=== PATIENT | female | born 1965 | race Caucasian/White ===

== ENCOUNTER 2016-08-04 09:24 | Emergency (ER) | payer OTHER ==
[~2016-08-04] VITALS: Ht 157.5 cm; Wt 70.3 kg
[~2016-08-04 09:24] MED LIST: HYDR-971 PO; MYCO180T3 PO; TACR1CAP4 PO; TEMA15CA PO
[2016-08-04] MEDS ORDERED: PROMETHAZINE 25 MG/ML VIAL IV ONE (10:03)
[2016-08-04] MEDS ORDERED: IV NORMAL SALINE 50ML 50 ML ONE (10:04)
[2016-08-04] MEDS ORDERED: KETOROLAC 30 MG/ML VIAL. IV ONE (10:15)
[2016-08-04] MEDS ORDERED: DIPHENHYDRAMINE 50 MG/ML VIAL IVP ONE (10:15)
[2016-08-04] MEDS ORDERED: HALOPERIDOL LACT 5 MG/ML VIAL. IVP ONE (10:15)
[2016-08-04] MEDS ORDERED: IV NORMAL SALINE 1,000ML 1,000 ML IV SCH (10:15)
[2016-08-04] MEDS ORDERED: PROMETHAZINE 25 MG in IV NORMAL SALINE 50ML 50 ML IV PRN (10:30)
--- NOTE | 2016-08-04 10:59 | PHYS DOC ---
General Chief Complaint: HEADACHE Stated Complaint: HEADACHE Time Seen by MD: 09:37 Source: patient, old records Exam Limitations: no limitations Problems: History of Present Illness Initial Comments Pt is 50/F to ED c/o migraine. Pt states she's had one of her typical migraines since Thursday. States she has photophobia, nausea, with emesis x 3 this am. No scotoma/aura/focal weakness, follows at [facility] for headaches. She had an appointment there this am but is missing it to come to this ED. Home meds not helping. Scratchy throat started yesterday no fever good PO. Timing/Duration: constant (2 days) Severity: severe Modifying Factors: improves with rest Associated Symptoms: headaches, nausea/vomiting Allergies: Coded Allergies: Penicillins (Unverified Allergy, Unknown, 11/29/13) Sulfa (Sulfonamide Antibiotics) (Verified Allergy, Unknown, 08/04/16) Past Medical History Medical History: other (migraines, GERD) Surgical History: noncontributory, other Family History Significant Family History: no pertinent family hx, hypertension, other Social History Smoker: non-smoker Alcohol: none Drugs: none Review of Systems Constitutional: denies chills, denies fever, denies malaise EENTM: see HPIdenies eye pain, denies blurred vision Respiratory: denies cough, denies shortness of breath Cardiovascular: denies chest pain, denies palpitations Gastrointestinal: see HPIdenies abdominal pain Genitourinary: denies dysuria, denies frequency, denies hematuria Musculoskeletal: denies back pain, denies joint swelling, denies neck pain Psychiatric/Neurological: headachedenies numbness, denies paresthesia, denies weakness Physical Exam General Appearance: moderate distress Eyes: bilateral eye EOMI, bilateral eye PERRL, bilateral eye normal inspection Ear, Nose, Throat: hearing grossly normal, normal ENT inspection, normal pharynx Neck: non-tender, supple Respiratory: normal breath sounds, no respiratory distress Cardiovascular: normal peripheral pulses, regular rate, rhythm Gastrointestinal: non tender, soft Extremities: non-tender, normal inspection 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 I discussed follow up appt, pt expressed agreement/understanding. Departure Time of Disposition: 10:58 Disposition: 01 HOME, SELF-CARE Diagnosis: recurrant migraine Condition: IMPROVED Patient Instructions: Migraine Headache, [id number]-[id number] Additional Instructions: Rest, no strenuous activity. No driving or operating machinery while sedated with meds. Continue current meds. Reschedule Headache Specialty appointment at for next available. Return to ED with new or changing symptoms. SANDI VICTORIA DO Aug 04, 2016 10:59
[2016-08-04 11:02] VITALS: BP 138/72
== END 2016-08-04 11:07 | disposition home or self-care (01) ==
LOC: ER 09:24
DX: G43.909 Migraine, unspecified, not intractable, without status migrainosus (principal); K21.9 Gastro-esophageal reflux disease without esophagitis; Z88.0 Allergy status to penicillin; Z88.2 Allergy status to sulfonamides
CPT/HCPCS: 87070; 87880; 96365; 96375; 99284; J1200; J1630; J1885; J2550; J7030

== ENCOUNTER 2016-08-13 13:18 | Inpatient (IN) | payer OTHER ==
[~2016-08-13] VITALS: Ht 157.5 cm; Wt 71.0 kg
[2016-08-13 14:05] LABS: BASO % 0 % (0-3); EOS # 0.4 x10^3/uL (0.0-0.7); EOS % 3 % (0-3); HEMATOCRIT 39.1 % (36.0-47.0); HEMOGLOBIN 12.7 g/dL (12.0-15.5); LYMPH # 1.4 x10^3/uL (1.0-4.8); LYMPH % 9 % (24-48); MEAN CORPUSCULAR HEMOGLOBIN 26 pg (25-35); MEAN CORPUSCULAR HGB CONC 33 g/dL (31-37); MEAN CORPUSCULAR VOLUME 78 fL (79-100); MONO # 0.6 x10^3/uL (0.0-1.1); MONO % 4 % (0-9); NEUT # 12.9 x10^3uL (1.8-7.7); NEUT % 85 % (31-73); PLATELET COUNT 404 x10^3/uL (140-400); RED BLOOD COUNT 4.98 x10^6/uL (3.50-5.40); RED CELL DISTRIBUTION WIDTH 15.1 % (11.5-14.5); WHITE BLOOD COUNT 15.3 x10^3/uL (4.0-11.0)
--- NOTE | 2016-08-13 14:10 | ED.ADGEN ---
Past History Past Medical History: Hypertension, Renal Disease, TIA, URI, UTI Past Surgical History: Tubal ligation, Other Smoking: Non-smoker Alcohol Use: None Drug Use: None Adult General Chief Complaint Chief Complaint "I don't feel well" HPI HPI Patient is a 50 year old female who presents with generalized malaise, chills, right ear pain, cough, nausea and vomiting. Patient was seen at her primary care doctor's office yesterday and diagnosed with an upper respiratory infection as well as a right otitis media and otitis externa. Patient was discharged on azithromycin and what sounds like ciprofloxacin eardrops. Patient was called by her primary care doctor today as she had a white count of 13.5 and white blood cells in her urine microscopy. Patient states that she hasn't been tolerating food and liquids well, she had an episode of vomiting this morning, nonbloody nonbilious. She's had intermittent productive cough. Patient has a history of a kidney transplant several years ago. 3 weeks ago they changed her kidney rejection medication to a new medication. She thinks this contributes to her general malaise. Review of Systems Review of Systems Constitutional: Denies fever Eyes: Denies change in visual acuity, redness, or eye pain [] HENT: per hpi Respiratory: Denies shortness of breath [] Cardiovascular: denies chest pain GI: Denies abdominal pain, bloody stools or diarrhea [] : Denies dysuria or hematuria [] Musculoskeletal: Denies back pain or joint pain [] Integument: Denies rash or skin lesions [] Neurologic: Denies headache, focal weakness or sensory changes [] Current Medications Current Medications Current Medications Medications (Trade) Dose Ordered Sig/Angel Start Time Stop Time Status Last Admin Dose Admin Ceftriaxone Sodium 1 gm/ Sodium Chloride 50 ml @ 100 mls/hr 1X ONCE 08/13/16 15:00 08/13/16 15:29 DC 08/13/16 15:00 100 MLS/HR Ceftriaxone Sodium (Rocephin) 1 gm STK-MED ONCE 08/13/16 15:13 08/13/16 15:14 DC Fentanyl Citrate (Fentanyl 2ml Vial) 50 mcg PRN Q2HR PRN 08/13/16 15:30 08/14/16 15:29 Ondansetron HCl (Zofran) 4 mg PRN Q4HRS PRN 08/13/16 15:30 08/14/16 15:29 Sodium Chloride (Iv Sodium Chloride 0.9% 50ml) 50 ml @ As Directed STK-MED ONCE 08/13/16 15:13 08/13/16 15:14 DC Allergies Allergies Allergies Coded Allergies Type Severity Reaction Last Updated Verified Penicillins Allergy Unknown 11/29/13 No Sulfa (Sulfonamide Antibiotics) Allergy Unknown 08/04/16 Yes Physical Exam Physical Exam Constitutional: Well developed, well nourished, no acute distress, non-toxic appearance. [] HENT: Normocephalic, atraumatic, bilateral external ears normal, oropharynx dry , no oral exudates, nose normal.R TM dull and retracted. Eyes: PERRLA, EOMI, conjunctiva normal, no discharge. [] Neck: Normal range of motion, no tenderness, supple, no stridor. [] Cardiovascular:Heart rate regular with regular rhythm, no murmur [] Lungs & Thorax: Bilateral breath sounds clear to auscultation , no wheeze or crackles Abdomen: Bowel sounds normal, soft, no tenderness, no masses, no pulsatile masses.no guarding or peritoneal signs Skin: Warm, dry, no erythema, no rash. [] Back: No tenderness, no CVA tenderness. [] Extremities: No tenderness, no cyanosis, no clubbing, ROM intact, no edema. [] Neurologic: Alert and oriented X 3, normal motor function, normal sensory function, no focal deficits noted. [] Current Patient Data Vital Signs Vital Signs Date Time Temp Pulse Resp B/P Pulse Ox O2 Delivery O2 Flow Rate FiO2 08/13/16 13:51 98.2 78 13 96 Room Air Lab Results Laboratory Tests Test 08/13/16 13:50 08/13/16 14:25 White Blood Count 15.3x10^3/uL (4.0-11.0) H Red Blood Count 4.98x10^6/uL (3.50-5.40) Hemoglobin 12.7g/dL (12.0-15.5) Hematocrit 39.1% (36.0-47.0) Mean Corpuscular Volume 78fL (79-100) L Mean Corpuscular Hemoglobin 26pg (25-35) Mean Corpuscular Hemoglobin Concent 33g/dL (31-37) Red Cell Distribution Width 15.1% (11.5-14.5) H Platelet Count 404x10^3/uL (140-400) H Neutrophils (%) (Auto) 85% (31-73) H Lymphocytes (%) (Auto) 9% (24-48) L Monocytes (%) (Auto) 4% (0-9) Eosinophils (%) (Auto) 3% (0-3) Basophils (%) (Auto) 0% (0-3) Neutrophils # (Auto) 12.9x10^3uL (1.8-7.7) H Lymphocytes # (Auto) 1.4x10^3/uL (1.0-4.8) Monocytes # (Auto) 0.6x10^3/uL (0.0-1.1) Eosinophils # (Auto) 0.4x10^3/uL (0.0-0.7) Basophils # (Auto) 0.0x10^3/uL (0.0-0.2) Segmented Neutrophils % 82% (35-66) H Lymphocytes % 14% (24-48) L Monocytes % 2% (0-10) Eosinophils % 2% (0-5) Platelet Estimate Increased (ADEQUATE) Sodium Level 138mmol/L (136-145) Potassium Level 3.9mmol/L (3.5-5.1) Chloride Level 102mmol/L (98-107) Carbon Dioxide Level 27mmol/L (21-32) Anion Gap 9 (6-14) Blood Urea Nitrogen 8mg/dL (7-20) Creatinine 1.1mg/dL (0.6-1.0) H Estimated GFR (Cockcroft-Gault) 52.8 BUN/Creatinine Ratio 7 (6-20) Glucose Level 113mg/dL (70-99) H Calcium Level 9.1mg/dL (8.5-10.1) Total Bilirubin 0.5mg/dL (0.2-1.0) Aspartate Amino Transferase (AST) 17U/L (15-37) Alanine Aminotransferase (ALT) 20U/L (14-59) Alkaline Phosphatase 132U/L (46-116) H Total Protein 7.6g/dL (6.4-8.2) Albumin 3.5g/dL (3.4-5.0) Albumin/Globulin Ratio 0.9 (1.0-1.7) L Urine Collection Type Unknown Urine Color Yellow Urine Clarity Hazy Urine pH 6.5 Urine Specific Willard 1.025 Urine Protein 100 mg/dl (NEG-TRACE) Urine Glucose (UA) Negmg/dL (NEG) Urine Ketones (Stick) Negmg/dL (NEG) Urine Blood Trace (NEG) Urine Nitrite Neg (NEG) Urine Bilirubin Neg (NEG) Urine Urobilinogen Dipstick 2mg/dL (0.2 mg/dL) Urine Leukocyte Esterase Small (NEG) Urine RBC 1-2/HPF (0-2) Urine WBC 11-20/HPF (0-4) Urine Squamous Epithelial Cells Many/LPF Urine Bacteria Many/HPF (0-FEW) EKG EKG [] Radiology/Procedures Radiology/Procedures [] Course & Med Decision Making Course & Med Decision Making Pertinent Labs and Imaging studies reviewed. (See chart for details) pt given IV fluids. + uti with increasing luekocytosis. As pt has been vomiting and not keeping antibiotics down, will admit for IV antibiotics, rocephin, and IV fluids. Dr. Ross accepted. Final Impression Final Impression UTI R otitis media Nausea and vomiting Immunosuppressed.[] Problems: Dragon Disclaimer Dragon Disclaimer This electronic medical record was generated, in whole or in part, using a voice recognition dictation system. HILDA CORBIN MD Aug 13, 2016 14:10
[2016-08-13] MEDS ORDERED: IV NORMAL SALINE 1,000ML 1,000 ML IV ONE (14:15)
[2016-08-13 14:17] LABS: ALBUMIN 3.5 g/dL (3.4-5.0); ALBUMIN/GLOBULIN RATIO 0.9 (1.0-1.7); CALCIUM 9.1 mg/dL (8.5-10.1); CREATININE 1.1 mg/dL (0.6-1.0); GFR 52.8; POTASSIUM 3.9 mmol/L (3.5-5.1); TOTAL BILIRUBIN 0.5 mg/dL (0.2-1.0); TOTAL PROTEIN 7.6 g/dL (6.4-8.2)
[2016-08-13 14:31] LABS: % EOS 2 % (0-5); % LYMPHS 14 % (24-48); % MONOS 2 % (0-10); % SEGS 82 % (35-66)
[2016-08-13 14:32] LABS: PLT ESTIMATE INCREASED (ADEQUATE)
[2016-08-13 14:50] LABS: BILIRUBIN,URINE NEG (NEG); CLARITY,URINE HAZY; COLOR,URINE YELLOW; GLUCOSE,URINE NEG (NEG); NITRITE,URINE NEG (NEG); UROBILINOGEN,URINE 2 mg/dL (0.2 mg/dL)
[2016-08-13 14:51] LABS: BACTERIA,URINE MANY /HPF (0-FEW); SQUAMOUS EPITHELIAL CELL,UR MANY /LPF
[2016-08-13] MEDS ORDERED: CEFTRIAXONE SODIUM 1 GM in IV NORMAL SALINE 50ML 50 ML IV ONE (15:00)
[2016-08-13] MEDS ORDERED: IV NORMAL SALINE 50ML 50 ML ONE (15:13)
[2016-08-13] MEDS ORDERED: CEFTRIAXONE SODIUM 1 GM VIAL IV ONE (15:13)
[2016-08-13] MEDS ORDERED: FENTANYL PF 100 MCG/2 ML VIAL. IV PRN (15:30)
[2016-08-13] MEDS ORDERED: ONDANSETRON PF 4 MG/2 ML VIAL. IV PRN (15:30)
--- NOTE | 2016-08-13 15:47 | RAD ---
Portable chest, 08/13/2016: History: UTI, previous kidney transplant Comparison is made to a study from 11/29/2013. The heart size and pulmonary vascularity are normal. There is minimal left basilar linear scarring or atelectasis. No significant pulmonary infiltrate is seen. There is no evidence of pleural fluid. IMPRESSION: No acute cardiopulmonary abnormality is detected.
--- NOTE | 2016-08-13 16:21 | ACF ---
Admission Criteria Forms URINARY COMPLICATIONS Clinical Indications for Inpatient Care (Place 'X' for any and all applicable criteria): Ongoing inpatient care may be indicated for urinary complications with ANY ONE of the following: [x]I. Urinary tract infection requiring inpatient care as indicated by ANY ONE of the following(8)(19)(20): [ ]a) Severe symptoms (eg, high fever, severe pain) [ ]b) Vomiting or dehydration requiring ongoing inpatient care [x]c) IV antibiotic needs that cannot be managed at lower level of care [ ]d) Hemodynamic instability [ ]e) Obstruction of collecting system by stone or tumor [ ]II. Urinary retention requiring drainage or surgery (3)(4)(5)(17)(18) [ ]III. Renal failure (Use Renal Failure Criteria for further information.) [ ]IV. Oliguria(30) [ ]V. Post obstructive diuresis requiring close monitoring of urine output and intravenous compensation for excessive fluid losses(33) Extended stay beyond goal length of stay for primary condition may be needed until ALL of the following are present(3)(4)(5)(8): [ ]a) Renal function (creatinine) at baseline, or daily decreases in creatinine consistent with renal function return [ ]b) Voiding adequately or with urinary catheter or percutaneous suprapubic tube and management regimen in place that is performable at lower level of care. [ ]c) Urine output adequate [ ]d) Fever absent or resolving [ ]e) Infection absent or treatable at next level of care The original [employer] content created by [employer] has been revised. The portions of the content which have been revised are identified through the use of italic text or in bold, and [facility] has neither reviewed nor approved the modified material. All other unmodified content is copyright [employer] Please see references footnoted in the original [facility] edition 2016 Admission Criteria Met?: Yes LESLY ANGEL Aug 13, 2016 16:21
[2016-08-13 17:16] VITALS: BP 140/83
[2016-08-13] MEDS ORDERED: ALPR0.5T PO (17:36)
[2016-08-13] MEDS ORDERED: TACR1CAP4 PO ×2 (17:37→17:59)
[2016-08-13] MEDS ORDERED: NITR100C62 PO (17:37)
[2016-08-13] MEDS ORDERED: SERT100T8 PO (17:38)
[2016-08-13] MEDS: IV NORMAL SALINE 1,000ML 1,000 ML IV SCH ×2 (17:52→19:57)
[2016-08-13] MEDS: ALPRAZOLAM 0.5 MG TABLET PO PRN ×2 (17:52→20:27)
[2016-08-13] MEDS ORDERED: CHOL10003 PO (17:58)
[2016-08-13] MEDS ORDERED: SERT100T PO (17:59)
[2016-08-13] MEDS ORDERED: PANT40TA3 PO (17:59)
[2016-08-13] MEDS ORDERED: MYCO180T PO ×2 (18:01)
[2016-08-13 19:00] VITALS: BP 138/79
[2016-08-13] MEDS: TACROLIMUS 1 MG CAPSULE PO SCH (20:21)
[2016-08-13] MEDS: MYCOPHENOLATE SODIUM 180 MG TABLET.DR PO SCH (20:27)
[2016-08-13] MEDS ORDERED: TACROLIMUS 1 MG CAPSULE PO SCH (21:00)
[2016-08-14 02:00] VITALS: BP 128/72
[2016-08-14 06:00] VITALS: BP 123/86
[2016-08-14 06:37] LABS: BASO % 0 % (0-3); EOS # 0.3 x10^3/uL (0.0-0.7); EOS % 3 % (0-3); HEMATOCRIT 34.4 % (36.0-47.0); HEMOGLOBIN 11.3 g/dL (12.0-15.5); LYMPH % 20 % (24-48); MEAN CORPUSCULAR HEMOGLOBIN 26 pg (25-35); MEAN CORPUSCULAR HGB CONC 33 g/dL (31-37); MEAN CORPUSCULAR VOLUME 79 fL (79-100); MONO # 0.5 x10^3/uL (0.0-1.1); MONO % 5 % (0-9); NEUT # 7.2 x10^3uL (1.8-7.7); NEUT % 72 % (31-73); PLATELET COUNT 360 x10^3/uL (140-400); RED BLOOD COUNT 4.37 x10^6/uL (3.50-5.40); RED CELL DISTRIBUTION WIDTH 14.9 % (11.5-14.5)
[2016-08-14 06:42] LABS: CALCIUM 8.6 mg/dL (8.5-10.1); CREATININE 0.9 mg/dL (0.6-1.0); GFR 66.5; POTASSIUM 3.5 mmol/L (3.5-5.1)
[2016-08-14 08:05] VITALS: BP 140/89
[2016-08-14] MEDS: PANTOPRAZOLE 40 MG TABLET. PO SCH (08:06)
[2016-08-14] MEDS: MYCOPHENOLATE SODIUM 180 MG TABLET.DR PO SCH ×2 (08:06→20:25)
[2016-08-14] MEDS: SERTRALINE 100 MG TABLET. PO SCH (08:06)
[2016-08-14] MEDS: CHOLECALCIFEROL (VITAMIN D3) 1,000 UNIT TABLET PO SCH (08:06)
[2016-08-14] MEDS: TACROLIMUS 1 MG CAPSULE PO SCH ×2 (08:06→20:25)
[2016-08-14 11:53] VITALS: BP 152/94
[2016-08-14] MEDS: CEFTRIAXONE SODIUM 1 GM in IV NORMAL SALINE 50ML 50 ML IV SCH (14:21)
--- NOTE | 2016-08-14 14:21 | HP ---
ADMIT DATE: 08/14/2016 HISTORY OF PRESENT ILLNESS: The patient is a 50-year-old female patient, who came to the Emergency Room complaining of generalized malaise, chills, right-sided headache, cough, nausea and vomiting. She apparently was seen by her primary care physician and diagnosed her with an upper respiratory tract infection as well as right otitis media and otitis externa. She was discharged home to continue Zithromax and ciprofloxacin eardrops. She apparently was contacted by her primary care physician. Her white cell count was high at 13,500 and she has also leukocyturia. As the patient has not been tolerating food and liquids well, she had episodes of vomiting, nonbloody, nonbilious. She had intermittent productive cough. The patient has a history of kidney transplant several years ago and about 3 weeks ago her immunosuppressant medications were changed. In any case, she was evaluated in the Emergency Room and was found to have leukocytosis with white cell count 15,300 and because she continued to have nausea, vomiting and seemed to be dehydrated, decision was made to admit her to the hospital to start her on IV antibiotic. Continue with eardrops and started on IV fluid and follow her closely. PAST MEDICAL HISTORY: Significant for hypertension, irritable bowel syndrome, polycystic kidney disease. PAST SURGICAL HISTORY: Significant for tubal ligation, kidney transplant, tonsillectomy, esophagogastroduodenoscopy and colonoscopy. ALLERGIES: She is allergic to PENICILLIN, SULFA DRUGS and Z-RODDY. MEDICATIONS: She is currently on the following medications: Alprazolam 0.5 mg every 6 hours as needed, cholecalciferol 2000 international units once a day, hydrocodone/APAP 5/325 one to two tablets every 6 hours, mycophenolate 180 mg p.o. at bedtime, mycophenolate 360 mg daily, nitrofurantoin 100 mg 3 times per week, Thursday, Thursday and Thursday, Protonix 40 mg once a day, Zoloft 100 mg once a day, tacrolimus 2 mg daily and tacrolimus 1 capsule at bedtime. REVIEW OF SYSTEMS: The patient denied any blurring of vision, cataract, glaucoma or macular degeneration. Denied any earache, tinnitus or sensorineural deafness. Denied any nosebleeds, stuffy nose or postnasal drip. Denied any sore throat, sore tongue, toothache, hoarseness of voice or difficulty swallowing. Did complain of nausea, vomiting, but no diarrhea or constipation. Denied any hematemesis, melena or hematochezia. Denied any dysuria, frequency or hematuria. Denied any chest pain, shortness of breath, orthopnea, paroxysmal nocturnal dyspnea. She did have cough, which is mostly dry. FAMILY HISTORY: Significant for that father at age of 68 due to lung cancer and mother at age 54 because of lung cancer. SOCIAL HISTORY: She is . She has 1 son from previous marriage, he is 27 years old. He and his children are did not manifest any evidence of polycystic kidney disease. She has two stepsons. She never smoked, does not drink alcohol or use any recreational drugs. 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 PHYSICAL EXAMINATION: GENERAL: On arrival to the Emergency Room, she looked well and was clearly in no apparent respiratory distress, slightly pale, no jaundice, cyanosis, or thyromegaly. No jugular venous distension. No limb edema. VITAL SIGNS: Her heart rate was 78, blood pressure was 161/93, temperature was 98.2, respiratory rate was 13 and oxygen saturation was 96%. HEAD, EYES, EARS, NOSE AND THROAT: Showed normocephalic, atraumatic. NECK: Supple. HEART: Showed normal first and second heart sounds with no gallop, rub or murmur. CHEST: Clear to auscultation. No crepitation or rhonchi. ABDOMEN: Slightly distended, soft, nontender. No guarding or rigidity. No organomegaly. All hernial orifices intact. Bowel sounds normal. NEUROLOGIC: She was awake, alert, responding appropriately. Cranial nerves intact. EXTREMITIES: She moves extremities without difficulty. She ambulates without assistance or assistive devices. LABORATORY DATA: On admission showed a serum sodium 138, potassium 3.9, chloride 102, bicarbonate 27, anion gap of 9, BUN 8, creatinine 1.1, estimated GFR was 52 mL per minute. Her glucose 113, calcium was 9.1. Total bilirubin, AST, ALT, alkaline phosphatase were normal. Her total protein was 7.6, albumin was 3.5. Her white cell count was 15,300, hemoglobin 12.7, hematocrit 39, MCV 78 and platelet count of 404,000 with a manual differential showed 85% polymorphs, 9% lymphocytes and 4% monocytes. Urinalysis showed the urine was yellow, hazy with a pH of 6.5, specific gravity of 1.025. There was a trace of protein. The urine was negative for glucose, ketones, blood, negative for nitrite. There was small amount of leukocyte esterase. There are 1 to 2 rbc's, 11 to 20 wbc's and many bacteria. ASSESSMENT AND PLAN: The patient was admitted with right side otitis externa/otitis interna, otitis media as well as urinary tract infection together with dehydration. She was started on IV Rocephin, IV fluid and ciprofloxacin otic drop. DAVINA LOMAS MD DR: SHIRA/estela JOB#: [id number] / [id number]
[2016-08-14 16:04] VITALS: BP 135/81
[2016-08-14 19:49] VITALS: BP 139/90
--- NOTE | 2016-08-14 21:51 | PN ---
DATE: 08/14/2016 SUBJECTIVE: The patient is resting slightly propped up in bed, in no apparent distress. She is definitely feeling much better. She has no more nausea or vomiting. She continued to have some discomfort in her right ear. No chills, rigors or fever. PHYSICAL EXAMINATION: GENERAL: When I examined her, she looked well and was clearly in no apparent respiratory distress, pale, but no jaundice, cyanosis, or thyromegaly. No jugular venous distension. No limb edema. VITAL SIGNS: Her heart rate was 76, blood pressure 152/94, temperature was 98, respiratory rate was 20 and oxygen saturation was 98%. HEAD, EYES, EARS, NOSE AND THROAT: Normocephalic, atraumatic. NECK: Supple. HEART: Showed normal first and second heart sounds with no gallop, rub or murmur. CHEST: Clear to auscultation. No crepitation or rhonchi. ABDOMEN: Distended, soft, nontender. NEUROLOGIC: She is awake, alert, responding appropriately. Cranial nerves intact. She moves extremities without difficulty. Her intake was 2700, output was only 250. LABORATORY DATA: As of this morning showed her white cell count came down to 10,000, hemoglobin 11.3, hematocrit 34, MCV 79 and platelet count of 360,000. Her chemistry showed a serum sodium 141, potassium 3.5, chloride 108, bicarbonate 26, anion gap of 7, BUN 9 and creatinine 0.9. Hemoglobin ____. Glucose was 106 and calcium was 8.6. ASSESSMENT: 1. Urinary tract infection seemed to be responding well to IV Rocephin. 2. Otitis externa, to continue with the ciprofloxacin ear drops. 3. Kidney transplant for end-stage renal disease secondary to polycystic kidney disease for which she is on mycophenolate and tacrolimus. PLAN: We will continue with IV antibiotic. I will discontinue the IV fluid as she has no further episodes of nausea, vomiting. Repeat her lab work tomorrow and hopefully can discharge her back home tomorrow. DAVINA LOMAS MD DR: SHIRA/estela JOB#: [id number] / [id number]
[2016-08-15 06:35] VITALS: BP 131/88
[2016-08-15 06:49] LABS: CALCIUM 8.8 mg/dL (8.5-10.1); GFR 58.9; POTASSIUM 3.6 mmol/L (3.5-5.1)
[2016-08-15 06:51] LABS: BASO % 0 % (0-3); EOS # 0.3 x10^3/uL (0.0-0.7); EOS % 3 % (0-3); HEMATOCRIT 34.7 % (36.0-47.0); HEMOGLOBIN 11.6 g/dL (12.0-15.5); LYMPH # 2.3 x10^3/uL (1.0-4.8); LYMPH % 21 % (24-48); MEAN CORPUSCULAR HEMOGLOBIN 26 pg (25-35); MEAN CORPUSCULAR HGB CONC 33 g/dL (31-37); MEAN CORPUSCULAR VOLUME 78 fL (79-100); MONO # 0.5 x10^3/uL (0.0-1.1); MONO % 5 % (0-9); NEUT # 7.8 x10^3uL (1.8-7.7); NEUT % 72 % (31-73); PLATELET COUNT 365 x10^3/uL (140-400); RED BLOOD COUNT 4.45 x10^6/uL (3.50-5.40); RED CELL DISTRIBUTION WIDTH 15.1 % (11.5-14.5); WHITE BLOOD COUNT 10.9 x10^3/uL (4.0-11.0)
[2016-08-15] MEDS: TACROLIMUS 1 MG CAPSULE PO SCH (08:46)
[2016-08-15] MEDS: MYCOPHENOLATE SODIUM 180 MG TABLET.DR PO SCH (08:46)
[2016-08-15] MEDS: CHOLECALCIFEROL (VITAMIN D3) 1,000 UNIT TABLET PO SCH (08:47)
[2016-08-15] MEDS: SERTRALINE 100 MG TABLET. PO SCH (08:47)
[2016-08-15] MEDS: PANTOPRAZOLE 40 MG TABLET. PO SCH (08:47)
[2016-08-15] MEDS: CEFTRIAXONE SODIUM 1 GM in IV NORMAL SALINE 50ML 50 ML IV SCH (11:51)
[2016-08-15] MEDS ORDERED: CEFU500T46 PO (13:23)
--- NOTE | 2016-08-15 18:56 | DS ---
DATE OF DISCHARGE: HISTORY OF PRESENT ILLNESS: The patient is a 50-year-old female patient with a past medical history significant for polycystic kidney disease who apparently went into end-stage renal failure, treated with kidney transplant and she is on immunosuppressive therapy. She has apparently recurrent urinary tract infection for which she is on suppressive therapy in the form of nitrofurantoin on Thursday, Thursday and Thursday, who apparently was seen at Emergency Room with recurrent bouts of nausea, vomiting, generalized malaise, chills and right-sided headache. She was seen by her primary care physician and diagnosed her with upper respiratory tract infection as well as right otitis media and otitis externa. She was started on Zithromax and ciprofloxacin eardrops. She apparently was contacted by her primary care physician as her white cell count was elevated. She has also abnormal findings in her urine and she was having recurrent episode of vomiting and has been unable to tolerate food or liquid. She became dehydrated. Decision was made to admit her to the hospital, started her on IV fluid, IV Rocephin, continued her eye drops and she did actually very well. She had no further episodes of nausea, vomiting. She tolerated her food without difficulty. Her white cell count has normalized from 15,000 to 10,000. Kidney function has also improved and a decision was made to discharge her home to continue all her medications with the addition of cefuroxime 500 mg twice a day for 4 more days to continue treatment of her UTI. PHYSICAL EXAMINATION: GENERAL: When I examined her today, she looked well and was clearly in no apparent respiratory distress, slightly pale, no jaundice, cyanosis, or thyromegaly. No jugular venous distension. No limb edema. VITAL SIGNS: Her heart rate was 84, blood pressure was 131/88, temperature was 98.2, respiratory rate was 18 and oxygen saturation was 95%. The rest of clinical examination is unremarkable, has not really changed. Her intake over the last 24 hours was 2800, output was 250. LABORATORY DATA: As of this morning showed a serum sodium 139, potassium 3.6, chloride 105, bicarbonate 25, anion gap of 9, BUN 9, creatinine 1. Estimated GFR was 59 mL per minute. Her glucose was 99. Calcium was 8.8. Her white cell count was 10,900, hemoglobin 11.6, hematocrit 34, MCV 78 and platelet count 365,000. Urine culture is negative. DISCHARGE MEDICATIONS: The patient was discharged home to continue on her alprazolam for Xanax 0.5 mg every 6 hours, vitamin D3 2000 international units once a day, hydrocodone/APAP 5/325 one to two tablets every 6 hours, mycophenolate sodium 180 mg at bedtime, mycophenolate sodium 360 mg in the morning, nitrofurantoin for Macrobid 100 mg 3 times per week, Thursday, Thursday and Thursday, Protonix 40 mg once a day, sertraline for Zoloft 100 mg daily, tacrolimus for Prograf 2 capsules daily and tacrolimus 1 mg at bedtime. She was also discharged on cefuroxime axetil 500 mg p.o. b.i.d. FINAL DISCHARGE DIAGNOSES: Urinary tract infection, otitis externa and otitis media, polycystic kidney disease and migraine headache. DAVINA LOMAS MD DR: SHIRA/estela JOB#: [id number] / [id number]
== END 2016-08-15 14:15 | disposition home or self-care (01) | DRG 872 ==
LOC: ER 13:18 → ICU 17:06 → 1 SOUTH 08-14 19:00
PROVIDERS: ADMIT Internal Medicine; ATTEND Internal Medicine
DX: A41.9 Sepsis, unspecified organism (principal); N39.0 Urinary tract infection, site not specified; Z94.0 Kidney transplant status; H66.91 Otitis media, unspecified, right ear; G43.909 Migraine, unspecified, not intractable, without status migrainosus; H60.90 Unspecified otitis externa, unspecified ear; E86.0 Dehydration; J06.9 Acute upper respiratory infection, unspecified; H83.09 Labyrinthitis, unspecified ear; K58.9 Irritable bowel syndrome, unspecified; Z80.1 Family history of malignant neoplasm of trachea, bronchus and lung; Z86.73 Personal history of transient ischemic attack (TIA), and cerebral infarction without residual deficits; Z87.440 Personal history of urinary (tract) infections; Z98.51 Tubal ligation status; Z88.0 Allergy status to penicillin; Z88.2 Allergy status to sulfonamides; I10 Essential (primary) hypertension
CPT/HCPCS: 36415; 71010; 80048; 80053; 81001; 85007; 85027; 87086; 87641; 96361; 96365; J0696; J7507; 99285-25; J7030

== ENCOUNTER 2017-03-21 10:45 | Emergency (ER) | payer OTHER ==
[~2017-03-21] VITALS: Ht 157.5 cm; Wt 63.5 kg
[~2017-03-21 10:45] MED LIST changes: +ALPR0.5T PO; +CEFU500T46 PO; +CHOL10003 PO; +MYCO180T10 PO; +NITR100C62 PO; +PANT40TA3 PO; +SERT100T PO; +SERT100T8 PO
[2017-03-21 10:54] VITALS: BP 150/120
[2017-03-21] MEDS ORDERED: CLIN300C8 PO (11:12)
--- NOTE | 2017-03-21 11:13 | PHYS DOC ---
Past History Past Medical History: Hypertension, Renal Disease, TIA, URI, UTI Past Surgical History: Tubal ligation, Other Smoking: Non-smoker Alcohol Use: None Drug Use: None Adult General Chief Complaint Chief Complaint: SKIN PROBLEM HPI HPI 51-year-old female with a history of renal transplant currently on mycophenolate presenting to the emergency department today with unilateral erythema redness and swelling of the left anterior urrutia. She reports this started about 24 hours ago. She denies any purulent drainage. She did notice a lisa in the skin just near the development of the rash. Location left lower leg. Duration constant. No alleviating or exacerbating factors. She denies fevers or chills at home. Review of systems is negative for chest pain shortness of breath abdominal pain nausea vomiting fevers chills. All other review of systems is negative unless otherwise noted in history of present illness. ED course: 51-year-old female presenting to the emergency department with unilateral cellulitis. Upon triage the patient is afebrile and well-appearing. On examination the patient's left lower extremity she has a palpable pulse with 2 second cap refill with normal sensation of the foot. She has approximately 4 cm in diameter anterior macular rash consistent with cellulitis. There is a small healing wound within the erythematous patch. Otherwise remainder the exam is unremarkable. No crepitus to palpation. No fluctuant mass to palpation. The patient is allergic to penicillin and sulfa. We will initiate the patient on clindamycin to have her follow up with her doctor on Thursday. We grisel a line with date and time on the patient's rash for monitoring. Review of Systems Review of Systems SEE ABOVE. Allergies Allergies Allergies Coded Allergies Type Severity Reaction Last Updated Verified Penicillins Allergy Intermediate 08/14/16 No Sulfa (Sulfonamide Antibiotics) Allergy Intermediate 08/14/16 Yes Physical Exam Physical Exam SEE ABOVE Constitutional: Well developed, well nourished, no acute distress, non-toxic appearance. [] HENT: Normocephalic, atraumatic, bilateral external ears normal, oropharynx moist, no oral exudates, nose normal. [] Eyes: PERRLA, EOMI, conjunctiva normal, no discharge. [] Neck: Normal range of motion, no tenderness, supple, no stridor. [] Cardiovascular:Heart rate regular rhythm, no murmur [] Lungs & Thorax: Bilateral breath sounds clear to auscultation [] Abdomen: Bowel sounds normal, soft, no tenderness, no masses, no pulsatile masses. [] Skin: SEE ABOVE Back: No tenderness, no CVA tenderness. [] Extremities: SEE ABOVE Neurologic: Alert and oriented X 3, normal motor function, normal sensory function, no focal deficits noted. [] Psychologic: Affect normal, judgement normal, mood normal. [] EKG EKG [] Radiology/Procedures Radiology/Procedures [] Course & Med Decision Making Course & Med Decision Making Pertinent Labs and Imaging studies reviewed. (See chart for details) [] Dragon Disclaimer Dragon Disclaimer This electronic medical record was generated, in whole or in part, using a voice recognition dictation system. Departure Departure: Impression: Primary Impression: Cellulitis Additional Impression: Cellulitis of left leg Disposition: HOME, SELF-CARE Condition: STABLE Referrals: ODILON GARY DO (PCP) Patient Instructions: Cellulitis, [id number], Clindamycin capsules Additional Instructions: Thank you for allowing us to participate in your care today. Followup with your primary care physician on Thursday for repeat evaluation. Call your Primary Doctor tomorrow and inform them of your visit today. If you do not have a primary care provider you can ask for a list of our primary care providers. Return to the emergency department you have any new or concerning findings. This should be evaluated by the primary care physician and any necessary consulting services for continued management within a few days after discharge. Return to emergency room if you have any new or concerning symptoms including but not limited to fever, chills, nausea, vomiting, intractable pain, any new rashes, chest pain, shortness of air, uncontrolled bleeding, difficulty breathing, and/or vision loss. Scripts Clindamycin Hcl (CLINDAMYCIN HCL) 300 Mg Capsule 1 CAP PO TID, #21 CAP Prov: TRENTON OVALLE MD 03/21/17 Problem Qualifiers TRENTON OVALLE MD Mar 21, 2017 11:13
== END 2017-03-21 11:16 | disposition home or self-care (01) ==
LOC: ER 10:45
DX: L03.116 Cellulitis of left lower limb (principal); I10 Essential (primary) hypertension; Z94.0 Kidney transplant status; Z86.73 Personal history of transient ischemic attack (TIA), and cerebral infarction without residual deficits; Z87.440 Personal history of urinary (tract) infections; Z88.0 Allergy status to penicillin; Z88.2 Allergy status to sulfonamides
CPT/HCPCS: 99283

== ENCOUNTER 2018-05-26 14:38 | Inpatient (IN) | payer OTHER ==
[~2018-05-26] VITALS: Ht 157.5 cm; Wt 68.2 kg
[~2018-05-26 14:38] MED LIST changes: +CLIN300C8 PO; +HYDR-3165 PO; -HYDR-971 PO
[2018-05-26] MEDS ORDERED: ONDANSETRON PF 4 MG/2 ML VIAL. ONE (14:50)
[2018-05-26] MEDS ORDERED: ONDANSETRON PF 4 MG/2 ML VIAL. IV ONE (15:00)
[2018-05-26] MEDS ORDERED: IV NORMAL SALINE 1,000ML 1,000 ML IV SCH (15:00)
--- NOTE | 2018-05-26 15:01 | PHYS DOC ---
Past History Past Medical History: Hypertension, Renal Disease, TIA, URI, UTI, Other ( kidney transplant) Past Surgical History: Tubal ligation, Other Smoking: Non-smoker Alcohol Use: None Drug Use: None Adult General Chief Complaint Chief Complaint: nausea and vomiting and diarrhea [facility] HPI Patient is a 52 year old female who presents with nausea and vomiting and diarrhea. Patient states he ate half-sister on last night and around midnight started to have frequent episodes of nausea and vomiting and diarrhea. Patient states she had about 7 episodes of vomiting and 5 episodes of nonbloody diarrhea with cramping abdominal pain and rated her pain 7/10. Patient complaining of decrease of urine output and generalized weakness and dizziness without fever and chills, sick contact, chest pain and shortness of breath. Review of Systems Review of Systems Constitutional: Denies fever or chills [] Eyes: Denies change in visual acuity, redness, or eye pain [] HENT: Denies nasal congestion or sore throat [] Respiratory: Denies cough or shortness of breath [] Cardiovascular: No additional information not addressed in HPI [] GI: Reports abdominal pain, nausea, vomiting, diarrhea [] : Denies dysuria or hematuria [] Musculoskeletal: Denies back pain or joint pain [] Integument: Denies rash or skin lesions [] Neurologic: Denies headache, focal weakness or sensory changes [] Endocrine: Denies polyuria or polydipsia [] All other systems were reviewed and found to be within normal limits, except as documented in this note. Current Medications Current Medications Current Medications Medications (Trade) Dose Ordered Sig/Angel Start Time Stop Time Status Last Admin Dose Admin Ondansetron HCl (Zofran) 4 mg STK-MED ONCE 05/26/18 14:50 05/26/18 14:51 DC Allergies Allergies Allergies Coded Allergies Type Severity Reaction Last Updated Verified Penicillins Allergy Intermediate 08/14/16 No Sulfa (Sulfonamide Antibiotics) Allergy Intermediate 08/14/16 Yes Physical Exam Physical Exam Constitutional: Well developed, moderate distress, non-toxic appearance. [] HENT: Normocephalic, atraumatic, oropharynx dry, no oral exudates, nose normal. [] Eyes: PERRLA, EOMI, conjunctiva normal, no discharge. [] Neck: Normal range of motion, no tenderness, supple, no stridor. [] Cardiovascular: Tachycardia, no murmur [] Lungs & Thorax: Bilateral breath sounds clear to auscultation [] Abdomen: Bowel sounds normal, soft, no tenderness, no masses, no pulsatile masses. [] Skin: Warm, dry, no erythema, no rash. [] Back: No tenderness, no CVA tenderness. [] Extremities: No tenderness, no cyanosis, no clubbing, ROM intact, no edema. [] Neurologic: Alert and oriented X 3, normal motor function, normal sensory function, no focal deficits noted. [] Psychologic: Affect normal, judgement normal, mood normal. [] EKG EKG [] Radiology/Procedures Radiology/Procedures [] Course & Med Decision Making Course & Med Decision Making Pertinent Labs reviewed. (See chart for details) Evaluation of patient in ER showed 52-year-old female patient with history of kidney transplant and complaining of episodes of nausea and vomiting and diarrhea since midnight. Patient was afebrile in ER and had tachycardia without hypotension. Patient treated with IV fluid and Zofran and later on fentanyl for her headache. Labs showed leukocytosis and elevation of lactic acid. Patient stated she has history of leukocytosis. Plan to not give any antibiotics because of concern for gastroenteritis infection because of gastroenteritis and admit patient. CT abdomen and pelvis and UA is pending. Dr. Ross accepted admission at 1611. Dragon Disclaimer Dragon Disclaimer This electronic medical record was generated, in whole or in part, using a voice recognition dictation system. Departure Departure: Impression: Primary Impression: SIRS (systemic inflammatory response syndrome) Additional Impressions: Acute gastroenteritis Abdominal pain Migraine headache Disposition: 09 ADMITTED INPATIENT (at 1612) Admitting Physician: John Ross (accepted admission at 1611) Condition: IMPROVED Referrals: ODILON GARY DO (PCP) Problem Qualifiers NIKITA HARRINGTON MD May 26, 2018 15:00
[2018-05-26 15:24] LABS: BASO % 0 % (0-3); EOS # 0.1 x10^3/uL (0.0-0.7); EOS % 0 % (0-3); HEMATOCRIT 41.1 % (36.0-47.0); HEMOGLOBIN 13.6 g/dL (12.0-15.5); LYMPH # 0.5 x10^3/uL (1.0-4.8); LYMPH % 3 % (24-48); MEAN CORPUSCULAR HEMOGLOBIN 26 pg (25-35); MEAN CORPUSCULAR HGB CONC 33 g/dL (31-37); MEAN CORPUSCULAR VOLUME 79 fL (79-100); MONO # 0.4 x10^3/uL (0.0-1.1); MONO % 2 % (0-9); NEUT # 14.7 x10^3uL (1.8-7.7); NEUT % 94 % (31-73); PLATELET COUNT 335 x10^3/uL (140-400); RED CELL DISTRIBUTION WIDTH 14.5 % (11.5-14.5); WHITE BLOOD COUNT 15.6 x10^3/uL (4.0-11.0)
[2018-05-26 15:35] LABS: ALBUMIN 3.9 g/dL (3.4-5.0); ALBUMIN/GLOBULIN RATIO 1.1 (1.0-1.7); CALCIUM 8.8 mg/dL (8.5-10.1); GFR 58.5; POTASSIUM 3.9 mmol/L (3.5-5.1); TOTAL BILIRUBIN 0.4 mg/dL (0.2-1.0); TOTAL PROTEIN 7.3 g/dL (6.4-8.2)
[2018-05-26 15:56] LABS: % BANDS 1 % (0-9); % BASOS 0 % (0-3); % EOS 1 % (0-5); % LYMPHS 3 % (24-48); % MONOS 1 % (0-10); % SEGS 94 % (35-66); PLT ESTIMATE ADEQUATE (ADEQUATE)
[2018-05-26 15:57] LABS: TOXIC VACUOLATION PRESENT
[2018-05-26] MEDS ORDERED: IV NORMAL SALINE 1,000ML 1,000 ML IV ONE (16:00)
[2018-05-26] MEDS: IV NORMAL SALINE 1,000ML 1,000 ML IV SCH (16:19)
[2018-05-26] MEDS ORDERED: ONDANSETRON PF 4 MG/2 ML VIAL. IV PRN (16:30)
[2018-05-26 17:20] VITALS: BP 113/76
--- NOTE | 2018-05-26 17:50 | RAD ---
Examination: CT ABDOMEN PELVIS WO CONTRAST History: Abdominal pain for several days. Pt states she has had RT kidney transplant several years ago and has three kidneys in abdomen Comparison/Correlation: 09/08/2009 CT abdomen and pelvis without contrast Findings: Axial images of the abdomen and pelvis were obtained without contrast. Sagittal and coronal reformatted images were provided. Small hiatal hernia is present. Liver, gallbladder fossa, pancreas, and adrenal glands are normal. Spleen is unremarkable. Severe bilateral [place] renal atrophy identified. There is a nonobstructive right renal superior pole and a right renal lower pole calyceal calculus. A total of 2 nonobstructive [place] right renal calculi are present. Right lower abdominal duplex renal transplant is present. Multiple calyceal calcar present. At the upper pole of the renal transplant, there is a 0.5 cm diameter calyceal calculus. At least 4 additional calyceal calculi are present and small in size at this site. Inferior pole calyceal calculus measuring 0.9 cm diameter is present. Smaller calcification which may be vascular also noted more medially at the right lower pole. Fullness of the right renal calyces noted. No hydroureter evident. Urinary bladder is unremarkable other than postoperative findings of transplanted ureteral anastomosis. Uterus is unremarkable. There is no bowel obstruction. No extraluminal gas. Moderate quantity of stool is present in the colon. Bony structures are unremarkable. No ascites or pelvic free fluid. No inflammatory change about the cecum. Impression: Nonobstructive right renal transplant calculi. Fullness of the pelvicalyceal system of the renal transplant is present with no radiopaque obstructive lesion or hydroureter. Nonobstructive calculi involving the [place] right kidney. Severe bilateral [place] renal atrophy. Electronically signed by: Ashwin Urena MD (05/26/2018 5:46 PM) [facility]
[2018-05-26] MEDS ORDERED: PROMETHAZINE 25 MG TABLET. PO PRN (18:15)
[2018-05-26] MEDS ORDERED: PROMETHAZINE 25 MG SUPP.RECT. PR PRN (18:15)
[2018-05-26] MEDS ORDERED: KETOROLAC 30 MG/ML VIAL. IM ONE (18:45)
[2018-05-26 19:43] VITALS: BP 125/82
[2018-05-26] MEDS ORDERED: ACETAMINOPHEN 325 MG TABLET PO PRN (20:45)
[2018-05-26] MEDS: TACROLIMUS 1 MG CAPSULE PO SCH (20:56)
[2018-05-26] MEDS: MYCOPHENOLATE SODIUM 180 MG TABLET.DR PO SCH (20:56)
[2018-05-26 23:49] VITALS: BP 104/68
[2018-05-27] MEDS: IV NORMAL SALINE 1,000ML 1,000 ML IV SCH ×2 (03:50→11:22)
[2018-05-27 06:02] VITALS: BP 107/70
[2018-05-27 06:27] LABS: BASO % 0 % (0-3); EOS # 0.1 x10^3/uL (0.0-0.7); EOS % 1 % (0-3); HEMATOCRIT 34.6 % (36.0-47.0); HEMOGLOBIN 11.5 g/dL (12.0-15.5); LYMPH # 0.8 x10^3/uL (1.0-4.8); LYMPH % 14 % (24-48); MEAN CORPUSCULAR HEMOGLOBIN 27 pg (25-35); MEAN CORPUSCULAR HGB CONC 33 g/dL (31-37); MEAN CORPUSCULAR VOLUME 80 fL (79-100); MONO # 0.3 x10^3/uL (0.0-1.1); MONO % 6 % (0-9); NEUT # 4.5 x10^3uL (1.8-7.7); NEUT % 79 % (31-73); PLATELET COUNT 248 x10^3/uL (140-400); RED BLOOD COUNT 4.35 x10^6/uL (3.50-5.40); RED CELL DISTRIBUTION WIDTH 14.5 % (11.5-14.5); WHITE BLOOD COUNT 5.7 x10^3/uL (4.0-11.0)
[2018-05-27 06:37] LABS: ALBUMIN 2.7 g/dL (3.4-5.0); ALBUMIN/GLOBULIN RATIO 0.9 (1.0-1.7); CALCIUM 8.1 mg/dL (8.5-10.1); CREATININE 0.8 mg/dL (0.6-1.0); GFR 75.6; POTASSIUM 3.4 mmol/L (3.5-5.1); TOTAL BILIRUBIN 0.4 mg/dL (0.2-1.0); TOTAL PROTEIN 5.7 g/dL (6.4-8.2)
[2018-05-27] MEDS ORDERED: PANTOPRAZOLE 40 MG TABLET. PO SCH (07:30)
[2018-05-27] MEDS ORDERED: POTASSIUM CHLORIDE 20 MEQ TABLET.ER. PO ONE (07:45)
[2018-05-27] MEDS: TACROLIMUS 1 MG CAPSULE PO SCH (08:37)
[2018-05-27] MEDS: MYCOPHENOLATE SODIUM 180 MG TABLET.DR PO SCH (08:38)
[2018-05-27] MEDS ORDERED: SERTRALINE 100 MG TABLET. PO SCH (09:00)
[2018-05-27 11:21] VITALS: BP 145/89
--- NOTE | 2018-05-27 16:28 | SSS ---
ADMIT DATE: 05/26/2018 HISTORY OF PRESENT ILLNESS: The patient is a 52-year-old female patient, who came to the Emergency Room with a complaint of recurrent bouts of nausea, vomiting and diarrhea. She stated that she ate half a sandwich last night and around midnight, started to have frequent episodes of nausea, vomiting and diarrhea. She stated she has about 7 episodes of vomiting, 5 episodes of nonbloody diarrhea with cramping abdominal pain and rated her pain as about 7/10 in severity. She complained of decrease in urine output, generalized weakness and dizziness without fever or chills, sick contact, chest pain or shortness of breath. She was evaluated in the Emergency Room and was admitted with acute gastroenteritis, abdominal pain, systemic inflammatory response syndrome and migraine headaches. She was started on IV fluid, antiemetic and did actually very well. By the time I saw her this morning, she has had no further episodes of nausea, vomiting. We did start her on a clear liquid diet last night and we advanced her diet as tolerated. She has had no further episodes of nausea, vomiting, no diarrhea, no abdominal pain, no dizziness or lightheadedness, has been up and about without difficulty. PAST MEDICAL HISTORY: Significant for polycystic kidney disease and hypertension with resultant end-stage renal disease. PAST SURGICAL HISTORY: Significant for kidney transplant, tubal ligation. ALLERGIES: She is apparently allergic to PENICILLIN, SULFA AND DIPHENHYDRAMINE. MEDICATIONS: She is currently on following medications: She is on sertraline 100 mg once a day, Protonix 40 mg once a day, mycophenolate sodium; Myfortic to 180 mg, she takes 2 tablets twice a day; and Prograf 1 mg, she takes 2 capsules twice a day. FAMILY HISTORY: She has one brother, still alive and younger, has no problems with his kidneys. Her father at the age of 62 because of lung and brain cancer. Mother at age of 52 because of cancer of the lung. SOCIAL HISTORY: She is , has 1 son from her previous marriage. She quit smoking in 2006. She does not drink alcohol or recreational drugs. She is a [id number] mom. PHYSICAL EXAMINATION: GENERAL: On examining her, she looked well and was clearly in no apparent respiratory distress. No pallor, jaundice, cyanosis, or thyromegaly. No jugular venous distension. No lower limb edema. VITAL SIGNS: Her heart rate was 86, blood pressure 107/70, temperature was 97.8, respiratory rate was 18 and oxygen saturation was 94% on room air. HEAD, EYES, EARS, NOSE AND THROAT: Showed normocephalic, atraumatic. NECK: Supple. HEART: Showed normal first and second heart sounds. No gallop, rub or murmur. CHEST: Clear to auscultation. No crepitation or rhonchi. ABDOMEN: Distended, soft, nontender. NEUROLOGIC: She was awake, alert, responding appropriately. All cranial nerves intact. EXTREMITIES: She moves extremities without difficulty. She ambulates without assistance or assistive devices. LABORATORY DATA: Her white cell count on admission was 15,600, hemoglobin 13.6, hematocrit 41, MCV 79 and platelet count of 335,000. Her chemistry showed a serum sodium 140, potassium 3.9, chloride 102, bicarbonate 24, anion gap of 14, BUN 18, creatinine 1, estimated GFR was 58 mL per minute. Her glucose was 111, calcium was 8.8. Total bilirubin, AST, ALT, alkaline phosphatase were normal. Total protein was 7.3, albumin was 3.9, lactic acid was slightly up at 2.5. The patient was treated with IV fluid, antiemetic and pain medication, continued on her immunosuppressant medications. She actually did very well. Her repeat lab work this morning showed a white cell count 5700, hemoglobin 11, hematocrit 34, MCV 80 and platelet count of 248,000. Her chemistry showed that her serum sodium was slightly down at 132, potassium 3.4 for which she received 40 mEq of potassium. Her chloride 105, bicarbonate 23, anion gap of 4, BUN 12, creatinine 0.8, estimated GFR was 75 mL. Her glucose was 103, calcium was 8.1, lactic acid is down to 1.5. Total bilirubin, AST, ALT, alkaline phosphatase were normal. Total protein was 5.7, albumin 2.7. She was discharged to continue with mycophenolate sodium 180 mg, which she takes 2 tablets twice a day; Protonix 40 mg once a day, sertraline 100 mg once a day, tacrolimus for Prograf 1 mg capsule to take 2 capsules twice a day. FINAL DISCHARGE DIAGNOSES: 1. Acute gastroenteritis. 2. Migraine headache. 3. Systemic inflammatory response syndrome. 4. Polycystic kidney with end-stage renal failure, status post kidney transplant. DAVINA LOMAS MD DR: SHIRA/estela JOB#: [id number] / [id number]
== END 2018-05-27 16:00 | disposition home or self-care (01) | DRG 391 ==
LOC: ER 14:38 → 1 SOUTH 16:37
PROVIDERS: ADMIT Internal Medicine; ATTEND Internal Medicine
DX: K52.9 Noninfective gastroenteritis and colitis, unspecified (principal); N18.6 End stage renal disease; I12.0 Hypertensive chronic kidney disease with stage 5 chronic kidney disease or end stage renal disease; Q61.3 Polycystic kidney, unspecified; R65.10 Systemic inflammatory response syndrome (SIRS) of non-infectious origin without acute organ dysfunction; Z94.0 Kidney transplant status; G43.909 Migraine, unspecified, not intractable, without status migrainosus; Z80.8 Family history of malignant neoplasm of other organs or systems; Z80.1 Family history of malignant neoplasm of trachea, bronchus and lung; Z86.73 Personal history of transient ischemic attack (TIA), and cerebral infarction without residual deficits; Z87.891 Personal history of nicotine dependence
CPT/HCPCS: 36415; 74176; 80053; 83605; 83690; 85007; 85025; 87045; 87493; 96361; 96374; 96375; J1885; J2405; J3010; J7507; 99285-25; J7030

== ENCOUNTER 2019-10-15 18:09 | Emergency (ER) | payer OTHER ==
[~2019-10-15] VITALS: Ht 157.5 cm; Wt 72.6 kg
[2019-10-15 18:09] VITALS: BP 136/85
[~2019-10-15 18:09] MED LIST changes: -TACR1CAP4 PO; +TACR1CAP5 PO
--- NOTE | 2019-10-15 18:39 | PHYS DOC ---
Past History Past Medical History: Hypertension, Renal Disease, Renal Failure, TIA, URI, UTI, Other Past Surgical History: Tubal ligation, Other Smoking: Non-smoker Alcohol Use: None Drug Use: None General Adult EDM: Chief Complaint: SKIN RASH/ABSCESS HPI: HPI: ".. I got hives every where.. I got sensitive skin.. but I was trying out new mattress at store all day .. and I think the disinfectant they use on them got my skin irritated...." Patient is a 53 year old female who presents with above hx and complaints extensive itching and hives after trying out mattress today. Patient does have a history of sensitive skin. No recent changes in soaps, foods, meds, or other exposures then shopping for mattresses. Patient denies any history immunosuppression. Patient denies any recent travel outside the [place]. No specific ill contacts. Patient normally follows with Dr.Thomas Salas. Review of Systems: Review of Systems: Constitutional: Denies fever or chills Eyes: Denies change in visual acuity HENT: Denies nasal congestion or sore throat Respiratory: Denies cough or shortness of breath Cardiovascular: Denies chest pain or edema GI: Denies abdominal pain, nausea, vomiting, bloody stools or diarrhea : Denies dysuria Musculoskeletal: Denies back pain or joint pain Integument: Denies rash Neurologic: Denies headache, focal weakness or sensory changes Endocrine: Denies polyuria or polydipsia Lymphatic: Denies swollen glands Psychiatric: Denies depression or anxiety Heart Score: Risk Factors: Risk Factors: DM, Current or recent (<one month) smoker, HTN, HLP, family history of CAD, obesity. Risk Scores: Score 0 - 3: 2.5% MACE over next 6 weeks - Discharge Home Score 4 - 6: 20.3% MACE over next 6 weeks - Admit for Clinical Observation Score 7 - 10: 72.7% MACE over next 6 weeks - Early Invasive Strategies Family History: Family History: Noncontributory to presentation Current Medications: Current Meds: See nursing for home meds Allergies: Allergies: Allergies Coded Allergies Type Severity Reaction Last Updated Verified Penicillins Allergy Intermediate 08/14/16 No Sulfa (Sulfonamide Antibiotics) Allergy Intermediate 08/14/16 Yes diphenhydramine Allergy Mild "I feel like Im climbing the jean with the shot. " 10/15/19 Yes Physical Exam: PE: Constitutional: Moderate acute distress, non-toxic appearance. [] HENT: Normocephalic, atraumatic, bilateral external ears normal, oropharynx moist, no oral exudates, nose normal. [] Eyes: PERRLA, EOMI, conjunctiva normal, no discharge. [] Neck: Normal range of motion, no tenderness, supple, no stridor. [] Cardiovascular:Heart rate regular rhythm, no murmur [] Lungs & Thorax: Bilateral breath sounds equal apex with few scattered wheezes on auscultation [] Abdomen: Bowel sounds normal, soft, no tenderness, no masses, no pulsatile masses. [] Skin: Warm, dry, hives/erythema, extensively over exposed area of body. Back: No tenderness, no CVA tenderness. [] Extremities: No tenderness, no cyanosis, no clubbing, ROM intact, no edema. [] Neurologic: Alert and oriented X 3, normal motor function, normal sensory function, no focal deficits noted. [] Psychologic: Affect anxious, judgement normal, mood normal. [] Current Patient Data: Vital Signs: Vital Signs Date Time Temp Pulse Resp B/P (MAP) Pulse Ox O2 Delivery O2 Flow Rate FiO2 10/15/19 18:09 98.2 84 18 136/85 (102) 97 Room Air EKG: EKG: [] Radiology/Procedures: Radiology/Procedures: [] Course & Med Decision Making: Course & Med Decision Making Pertinent Labs and Imaging studies reviewed. (See chart for details) Patient received a Depo-Medrol injection of 40 mg. Pepcid 20 mg p.o. Patient continue prednisone 50 mg daily for 5 days. Patient take Pepcid twice a day for 10 days. Patient follow-up primary care. Patient return if any concerns. Patient take Tylenol or ibuprofen since this may help with with the itching sensation Impression: 1. Hives/ Contact Dermatitis- Allergic Reaction [] Dragon Disclaimer: Gabby Disclaimer: This electronic medical record was generated, in whole or in part, using a voice recognition dictation system. Departure Departure: Disposition: 01 HOME/RESIDENCE PRIOR TO ADM Condition: STABLE Referrals: LEVI BAKER DO (PCP) Scripts Famotidine (PEPCID) 20 Mg Tablet 20 MG PO BID for hives for 10 Days, #20 TAB Prov: GAYLE BOLANOS MD 10/15/19 Prednisone (PREDNISONE) 50 Mg Tablet 50 MG PO DAILY for hives for 5 Days, #5 TAB Prov: GAYLE BOLANOS MD 10/15/19 Justification of Admission: Justification of Admission: Justification of Admission Dx: N/A Dragon Disclaimer This chart was dictated in whole or in part using Voice Recognition software in a busy, high-work load, and often noisy Emergency Department environment. It may contain unintended and wholly unrecognized errors or omissions. GAYLE BOLANOS MD Oct 15, 2019 18:39
[2019-10-15] MEDS ORDERED: methylPREDNISolone ACETATE 40 MG/ML VIAL. IM ONE (19:00)
[2019-10-15] MEDS ORDERED: FAMOTIDINE 20 MG TABLET PO ONE (19:00)
[2019-10-15] MEDS ORDERED: PRED50TA PO (19:01)
[2019-10-15] MEDS ORDERED: FAMO-63 PO (19:01)
== END 2019-10-15 19:22 | disposition home or self-care (01) ==
LOC: ER 18:09
DX: T78.40XA Allergy, unspecified, initial encounter (principal); I10 Essential (primary) hypertension; Z87.440 Personal history of urinary (tract) infections; N19 Unspecified kidney failure; Z88.0 Allergy status to penicillin; Z88.2 Allergy status to sulfonamides; Z88.8 Allergy status to other drugs, medicaments and biological substances; X58.XXXA Exposure to other specified factors, initial encounter
CPT/HCPCS: 96372; 99283; J1030

== ENCOUNTER 2019-10-21 17:33 | Inpatient (IN) | payer OTHER ==
[~2019-10-21] VITALS: Ht 157.5 cm; Wt 73.0 kg
[~2019-10-21 17:33] MED LIST changes: +FAMO-63 PO; +PRED50TA PO
--- NOTE | 2019-10-21 17:47 | PHYS DOC ---
Past History Past Medical History: High Cholesterol, Hypertension, Renal Disease, Renal Failure, TIA, URI, UTI, Other Past Surgical History: Tubal ligation, Other Smoking: Non-smoker Alcohol Use: None Drug Use: None General Adult EDM: Chief Complaint: FACE PROBLEM HPI: HPI: " I ve had tingle... in my upper lip... Lt. arm, and hand for three days...." " I mainly in my upper lip... " " I ve had 11 TIA's in past... Had this constant for the last 3 days...".." I figured.. I should get it check out ..." Patient is a 53 year old female who presents with above hx and complaints of Lt arm, hand and upper lip numbness x 3 days. Pt. denies any changes in meds. Pt. follows [facility] for care. Pt does not smoke, does take a daily aspirin. Pt. is Rt. hand dominate. No hx of trauma. No hx immunosuppression. Nr recent travel out side of [facility]. Patient has history of polycystic kidney disease, hypertension, end-stage renal disease, kidney transplant, tubal ligation, TIAs., Migraine headache, acute gastroenteritis, depression, has had previous SIRs event on admission on 05/27/2018. There is a family history of one brother is still alive and younger brother with no problems father at age 62 due to lung and brain cancer he also had MIs starting at age 49 mother had hearing loss and age 52 due to cancer of the lung. Patient does not currently smoke quit smoking in 2006 does not drink alcohol or use recreational drugs. NIH 1, repeat l . Review of Systems: Review of Systems: Constitutional: Denies fever or chills Eyes: Denies change in visual acuity HENT: Denies nasal congestion or sore throat Respiratory: Denies cough or shortness of breath Cardiovascular: Denies chest pain or edema GI: Denies abdominal pain, nausea, vomiting, bloody stools or diarrhea : Denies dysuria Musculoskeletal: Denies back pain or joint pain Integument: Denies rash Neurologic: Denies headache,. Complaints tingle in upper lip, lt. arm and hand x 3 dasys. Endocrine: Denies polyuria or polydipsia Lymphatic: Denies swollen glands Psychiatric: Denies depression or anxiety Heart Score: HEART Score for Chest Pain: HEART Score for Chest Pain Response (Comments) Value History Moderately Suspicious 1 ECG Nonspecific Repolarizatio 1 Age >45 - < 65 1 Risk Factors 1 or 2 Risk Factors 1 Total 4 Risk Factors: Risk Factors: DM, Current or recent (<one month) smoker, HTN, HLP, family history of CAD, obesity. Risk Scores: Score 0 - 3: 2.5% MACE over next 6 weeks - Discharge Home Score 4 - 6: 20.3% MACE over next 6 weeks - Admit for Clinical Observation Score 7 - 10: 72.7% MACE over next 6 weeks - Early Invasive Strategies Family History: Family History: MS, hearing lost, Current Medications: Current Meds: See nursing for home meds Allergies: Allergies: Allergies Coded Allergies Type Severity Reaction Last Updated Verified Penicillins Allergy Intermediate 08/14/16 No Sulfa (Sulfonamide Antibiotics) Allergy Intermediate 08/14/16 Yes diphenhydramine Allergy Mild "I feel like Im climbing the jean with the shot. " 10/15/19 Yes Physical Exam: PE: Constitutional: mild distress, non-toxic appearance. [] HENT: Normocephalic, atraumatic, bilateral external ears normal, oropharynx moist, no oral exudates, nose normal. []Complaints of tingle and numbness of upper lip. ( both sides). Eyes: PERRLA, EOMI, conjunctiva normal, no discharge. Glasses Neck: Normal range of motion, no tenderness, supple, no stridor. [] Cardiovascular: Bradycardia heart rate regular rhythm, no murmur [] PMI slightly to the left Lungs & Thorax: Bilateral breath sounds equal apex auscultation [] Abdomen: Bowel sounds normal, soft, no tenderness, no masses, no pulsatile masses. [Old surgery scars.) Skin: Warm, dry, no erythema, no rash. [] Back: No tenderness, no CVA tenderness. [] Extremities: No tenderness, no cyanosis, no clubbing, ROM intact, no edema. [] Neurologic: Alert and oriented X 3, normal motor function, n subjective complaints of "tingling "in upper lip, left arm and left hand , no focal deficits noted. [] DTRs +2 patellar and brachial. 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 No drift. Right-hand dominant. Psychologic: Affect anxious, judgement normal, mood normal. [] EKG: EKG: My interpretation of EKG shows a sinus rate of 62, Lt. axis, low voltage. non- specific anteroseptal changes. No findings of acute STEMI with contralateral changes. [] Radiology/Procedures: Radiology/Procedures: [address] [address] IMAGING REPORT Signed PATIENT: HEATHER EARLY ACCOUNT: [id number] : 1965 LOCATION: ER AGE: 53 SEX: F EXAM STATUS: REG ER ORD. PHYSICIAN: GAYLE BOLANOS MD REASON: Lt hand, neck numbness, PROCEDURE: CT HEAD AND CERVICAL SPINE WO CT scan of the head without contrast 10/21/2019 Clinical History: Weakness. Left hand and left neck numbness. Technique: Unenhanced, contiguous, 5 mm axial sections were obtained through the head. One or more of the following individualized dose reduction techniques were utilized for this study: 1. Automated exposure control. 2. Adjustment of the mA and/or kV according to patient size. 3. Use of iterative reconstruction technique. Findings: The ventricles and sulci are within normal limits in size and configuration No acute parenchymal abnormality is seen. No extra-axial fluid collection is noted. No skull fracture is seen. Impression: No acute intracranial abnormality is seen. CT scan of the cervical spine without contrast 10/21/2019 Clinical history: Left hand and left neck numbness. Technique: Unenhanced, contiguous, 0.625 mm axial sections were obtained through the cervical spine. Axial, coronal and sagittal reconstructed images were obtained. One or more of the following individualized dose reduction techniques were utilized for this study: 1. Automated exposure control. 2. Adjustment of the mA and/or kV according to patient size. 3. Use of iterative reconstruction technique. Findings: Sagittal and coronal reconstructed images demonstrate straightening of the normal cervical lordosis. Very mild lateral curvature of the cervical spine is seen convex to the left. Degenerative changes consisting of disc space narrowing, vertebral endplate sclerosis and mild anterior and posterior vertebral body osteophyte formation are seen throughout the cervical disc spaces. Atherosclerotic calcification is seen in the region of the carotid bifurcations and the distal vertebral arteries. No fracture or subluxation of the cervical vertebrae is seen. Degenerative changes are seen throughout the cervical disc spaces consisting of minimal to mild generalized disc bulges and degenerative changes involving the uncovertebral and facet joints. These findings do not result in definite areas of significant central spinal canal or neural foraminal stenosis. Impression: Degenerative changes are seen involving cervical spine as discussed above. No acute osseous abnormality is seen. Electronically signed by: Wale Langston MD (10/21/2019 6:16 PM) [id number] DICTATED AND SIGNED BY: WALE LANGSTON MD DATE: 10/21/191815 CC: GAYLE BOLANOS MD; LEVI BAKER DO ~ IMAGING REPORT Signed PATIENT: HEATHER EARLY ACCOUNT: [id number] : 1965 LOCATION: ER AGE: 53 SEX: F EXAM STATUS: REG ER ORD. PHYSICIAN: GAYLE BOLANOS MD REASON: chest discomfort PROCEDURE: CHEST PA & LATERAL EXAM: Chest, 2 views. HISTORY: Chest pain. COMPARISON: 08/13/2016 FINDINGS: 2 views of the chest are obtained. There is no infiltrate, pleural effusion or pneumothorax. The heart is normal in size. IMPRESSION: No acute pulmonary finding. Electronically signed by: Pamela Jason MD (10/21/2019 6:08 PM) [facility] [place] DICTATED AND SIGNED BY: PAMELA JASON MD DATE: 10/21/191807 CC: GAYLE BOLANOS MD; LEVI BAKER DO ~ [][address] [address] IMAGING REPORT Signed PATIENT: HEATHER EARLY ACCOUNT: [id number] : 1965 LOCATION: ER AGE: 53 SEX: F EXAM STATUS: REG ER ORD. PHYSICIAN: GAYLE BOLANOS MD REASON: chest discomfort PROCEDURE: CHEST PA & LATERAL EXAM: Chest, 2 views. HISTORY: Chest pain. COMPARISON: 08/13/2016 FINDINGS: 2 views of the chest are obtained. There is no infiltrate, pleural effusion or pneumothorax. The heart is normal in size. IMPRESSION: No acute pulmonary finding. Electronically signed by: Pamela Jason MD (10/21/2019 6:08 PM) [facility] DICTATED AND SIGNED BY: PAMELA JASON MD DATE: 10/21/191807 CC: GAYLE BOLANOS MD; LEVI BAKER DO ~ Course & Med Decision Making: Course & Med Decision Making Pertinent Labs and Imaging studies reviewed. (See chart for details) Pt.not a candidate for TPA due to the length of symptoms and minimal presentation. Did discuss with patient risk and benefits. Patient admitted to , with consult to Cardiology and Neurology. Impression: 1. TIA 2. Mild leukocytosis 13.3 3. Anemia hemoglobin 12.1 with microcytic hyperchromic indices 75/24 4. Diabetes 5. Elevated creatinine at 1.3 [] Dragon Disclaimer: Dragon Disclaimer: This electronic medical record was generated, in whole or in part, using a voice recognition dictation system. Departure Departure: Disposition: HOME/RESIDENCE PRIOR TO ADM Condition: STABLE Referrals: LEVI BAKER DO (PCP) Justification of Admission: Justification of Admission: Justification of Admission Dx: Yes Comments: CAROLYN Dragon Disclaimer This chart was dictated in whole or in part using Voice Recognition software in a busy, high-work load, and often noisy Emergency Department environment. It may contain unintended and wholly unrecognized errors or omissions. Dragon Disclaimer This chart was dictated in whole or in part using Voice Recognition software in a busy, high-work load, and often noisy Emergency Department environment. It may contain unintended and wholly unrecognized errors or omissions. Dragon Disclaimer This chart was dictated in whole or in part using Voice Recognition software in a busy, high-work load, and often noisy Emergency Department environment. It may contain unintended and wholly unrecognized errors or omissions. GAYLE BOLANOS MD Oct 21, 2019 17:47
[2019-10-21] MEDS ORDERED: IV RINGERS SOLUTION,LACTATED 1,000 ML IV SCH (18:00)
--- NOTE | 2019-10-21 18:11 | RAD ---
EXAM: Chest, 2 views. HISTORY: Chest pain. COMPARISON: 08/13/2016 FINDINGS: 2 views of the chest are obtained. There is no infiltrate, pleural effusion or pneumothorax. The heart is normal in size. IMPRESSION: No acute pulmonary finding. Electronically signed by: Leanna Hu MD (10/21/2019 6:08 PM) [facility]
--- NOTE | 2019-10-21 18:18 | RAD ---
CT scan of the head without contrast 10/21/2019 Clinical History: Weakness. Left hand and left neck numbness. Technique: Unenhanced, contiguous, 5 mm axial sections were obtained through the head. One or more of the following individualized dose reduction techniques were utilized for this study: 1. Automated exposure control. 2. Adjustment of the mA and/or kV according to patient size. 3. Use of iterative reconstruction technique. Findings: The ventricles and sulci are within normal limits in size and configuration No acute parenchymal abnormality is seen. No extra-axial fluid collection is noted. No skull fracture is seen. Impression: No acute intracranial abnormality is seen. CT scan of the cervical spine without contrast 10/21/2019 Clinical history: Left hand and left neck numbness. Technique: Unenhanced, contiguous, 0.625 mm axial sections were obtained through the cervical spine. Axial, coronal and sagittal reconstructed images were obtained. One or more of the following individualized dose reduction techniques were utilized for this study: 1. Automated exposure control. 2. Adjustment of the mA and/or kV according to patient size. 3. Use of iterative reconstruction technique. Findings: Sagittal and coronal reconstructed images demonstrate straightening of the normal cervical lordosis. Very mild lateral curvature of the cervical spine is seen convex to the left. Degenerative changes consisting of disc space narrowing, vertebral endplate sclerosis and mild anterior and posterior vertebral body osteophyte formation are seen throughout the cervical disc spaces. Atherosclerotic calcification is seen in the region of the carotid bifurcations and the distal vertebral arteries. No fracture or subluxation of the cervical vertebrae is seen. Degenerative changes are seen throughout the cervical disc spaces consisting of minimal to mild generalized disc bulges and degenerative changes involving the uncovertebral and facet joints. These findings do not result in definite areas of significant central spinal canal or neural foraminal stenosis. Impression: Degenerative changes are seen involving cervical spine as discussed above. No acute osseous abnormality is seen. Electronically signed by: Wale Langston MD (10/21/2019 6:16 PM) [id number]
[2019-10-21 19:18] LABS: BARBITURATES NEG (NEG); BENZODIAZEPINES NEG (NEG); CANNABINOIDS NEG (NEG); COCAINE NEG (NEG); METHADONE NEG (NEG); OPIATES NEG (NEG); PHENCYCLIDINE NEG (NEG)
[2019-10-21 19:19] LABS: BASO # 0.2 x10^3/uL (0.0-0.2); BASO % 1 % (0-3); EOS # 0.2 x10^3/uL (0.0-0.7); EOS % 2 % (0-3); HEMATOCRIT 37.5 % (36.0-47.0); HEMOGLOBIN 12.1 g/dL (12.0-15.5); LYMPH % 22 % (24-48); MEAN CORPUSCULAR HEMOGLOBIN 24 pg (25-35); MEAN CORPUSCULAR HGB CONC 32 g/dL (31-37); MEAN CORPUSCULAR VOLUME 75 fL (79-100); MONO # 0.5 x10^3/uL (0.0-1.1); MONO % 4 % (0-9); NEUT # 9.4 x10^3uL (1.8-7.7); NEUT % 71 % (31-73); PLATELET COUNT 370 x10^3/uL (140-400); RED BLOOD COUNT 4.98 x10^6/uL (3.50-5.40); RED CELL DISTRIBUTION WIDTH 14.6 % (11.5-14.5); WHITE BLOOD COUNT 13.3 x10^3/uL (4.0-11.0)
[2019-10-21 19:23] LABS: CALCIUM 8.9 mg/dL (8.5-10.1); CREATININE 1.3 mg/dL (0.6-1.0); POTASSIUM 4.6 mmol/L (3.5-5.1)
[2019-10-21 19:23] LABS: AMPHETAMINE/METHAMPHETAMINE NEG (NEG)
[2019-10-21 19:30] LABS: BILIRUBIN,URINE NEG (NEG); CLARITY,URINE CLOUDY; COLOR,URINE YELLOW; GLUCOSE,URINE NEG (NEG)
[2019-10-21 19:31] LABS: AMORPHOUS SEDIMENT,UR PRESENT /HPF; BACTERIA,URINE MOD /HPF (0-FEW); NITRITE,URINE NEG (NEG); SQUAMOUS EPITHELIAL CELL,UR MOD /LPF; UROBILINOGEN,URINE 0.2 mg/dL (0.2 mg/dL); WBC,URINE 20-40 /HPF (0-4)
[2019-10-21 19:38] LABS: ALBUMIN 3.7 g/dL (3.4-5.0); DIRECT BILIRUBIN 0.1 mg/dL (0.0-0.2); MAGNESIUM 1.8 mg/dL (1.8-2.4); TOTAL BILIRUBIN 0.4 mg/dL (0.2-1.0); TOTAL PROTEIN 7.5 g/dL (6.4-8.2)
[2019-10-21] MEDS ORDERED: ONDANSETRON PF 4 MG/2 ML VIAL. IVP PRN (23:00)
[2019-10-21] MEDS ORDERED: ACETAMINOPHEN 325 MG TABLET PO PRN (23:00)
[2019-10-21] MEDS ORDERED: MAGNESIUM HYDROXIDE 2,400 MG/30 ML ORAL.SUSP. ONE (23:09)
[2019-10-21] MEDS ORDERED: ASPIRIN 325 MG TABLET PO ONE (23:15)
[2019-10-21] MEDS ORDERED: MAGNESIUM HYDROXIDE 2,400 MG/30 ML ORAL.SUSP. PO ONE (23:45)
[2019-10-21 23:50] VITALS: BP 139/85
[2019-10-22] MEDS ORDERED: TACR1CAP5 PO (00:40)
[2019-10-22] MEDS ORDERED: ASPI-630 PO (00:40)
[2019-10-22 04:00] VITALS: BP 129/88
[2019-10-22 07:00] VITALS: BP 120/63
[2019-10-22 07:15] LABS: BASO % 0 % (0-3); EOS # 0.2 x10^3/uL (0.0-0.7); EOS % 2 % (0-3); HEMATOCRIT 36.8 % (36.0-47.0); HEMOGLOBIN 11.9 g/dL (12.0-15.5); LYMPH # 3.3 x10^3/uL (1.0-4.8); LYMPH % 26 % (24-48); MEAN CORPUSCULAR HEMOGLOBIN 25 pg (25-35); MEAN CORPUSCULAR HGB CONC 33 g/dL (31-37); MEAN CORPUSCULAR VOLUME 76 fL (79-100); MONO # 0.5 x10^3/uL (0.0-1.1); MONO % 4 % (0-9); NEUT # 8.6 x10^3uL (1.8-7.7); NEUT % 68 % (31-73); PLATELET COUNT 343 x10^3/uL (140-400); RED BLOOD COUNT 4.86 x10^6/uL (3.50-5.40); RED CELL DISTRIBUTION WIDTH 14.2 % (11.5-14.5); WHITE BLOOD COUNT 12.7 x10^3/uL (4.0-11.0)
[2019-10-22 07:40] LABS: CALCIUM 8.7 mg/dL (8.5-10.1); CREATININE 1.3 mg/dL (0.6-1.0); POTASSIUM 4.4 mmol/L (3.5-5.1)
[2019-10-22] MEDS ORDERED: ASPIRIN CHEWABLE 81 MG TABLET. PO SCH (08:00)
[2019-10-22] MEDS ORDERED: IPRATRPIUM/ALBUTEROL 0.5/2.5MG 3 ML NEBU. NEB SCH (08:00)
--- NOTE | 2019-10-22 08:08 | RAD ---
Carotid doppler ultrasound History: TIA Multiple grayscale, color, and duplex spectral analysis waveform sonographic images were acquired of the carotid, subclavian, and vertebral arteries. Comparison: None Findings: RIGHT: PSV cm/sec EDV cm/sec Common carotid artery 53 17 Maximal internal carotid artery 62 27 External carotid artery 56 Vertebral artery 49 ICA/CCA ratio 1.0 LEFT: PSV cm/sec EDV cm/sec Common carotid artery 66 20 Maximum internal carotid artery 66 20 External carotid artery 71 Vertebral artery 49 ICA/CCA ratio 1.0 Velocities used to determine stenosis are known to correlate with NASCET angiographic criteria. There is antegrade flow in the bilateral vertebral arteries. No significant stenosis is demonstrated on color grayscale images. Impression: 1. There is no evidence of a hemodynamically significant stenosis. Electronically signed by: Noe Henry MD (10/22/2019 8:05 AM) [id number]
[2019-10-22 10:49] VITALS: BP 148/88
--- NOTE | 2019-10-22 11:41 | CONS ---
DATE OF CONSULTATION: NEUROLOGY CONSULTATION REFERRING PHYSICIAN: Dr. Ross. REASON FOR CONSULTATION: Rule out TIA versus stroke. HISTORY OF PRESENT ILLNESS: This is a 53-year-old right-handed female who was admitted through Emergency Room after she presented with 3-day history of numbness confined to the upper lip and left hand. According to the patient, the numbness of the upper lip resolved yesterday, but she continues to have numbness and paresthesia of the left hand. She denies chest pain, shortness of breath, palpitation, dysarthria, or dysphagia. The patient also describes weakness of the left upper extremity, described as heaviness. The patient has had history of migraine headaches for several years. The last migraine headache was 3 months ago. She has been taking propranolol as a preventive agent. She denies any recent head injuries or falls. There has been no nocturnal exacerbation of her symptoms. However, the patient has been under extreme stress in the last few weeks as by her 37 years old daughter, had atrial fibrillation and massive stroke in [place] and she has been very anxious and depressed about her situation. The patient did have history of anxiety and depression as well. She described similar episode in 2003 and she claimed 11 events as TIAs. She had brain MRI and repeated one at [facility] 2 years ago and revealed evidence of "white matter disease and possible small vessel ischemic changes." Currently, the patient denies any other neurological complaints except for numbness and tingling of the left hand. Initial nonenhanced head CT scan revealed no evidence of acute intracranial process. Cervical spine CT scan revealed evidence of mild degenerative disk disease at multiple levels. PAST MEDICAL HISTORY: Quite significant for frequent urinary tract infections, history of TIAs as described above, gastroesophageal reflux disease, polycystic kidney disease, skin cancer, history of migraine headaches, treated with propranolol as preventive agent, and hyperlipidemia. PAST SURGICAL HISTORY: Significant for right kidney transplant in 2007, tonsillectomy, cataract removal, and tubal ligation.. FAMILY HISTORY: Father at age of 62 from brain and lung cancer. Mother at age of 52 due to lung cancer. SOCIAL HISTORY: The patient is . She denies smoking, alcohol drinking, or illicit drug use. CURRENT HOME MEDICATIONS: Include aspirin 81 mg daily, Myfortic 180 mg 1 tablet b.i.d., pantoprazole 40 mg daily, Zoloft 100 mg daily, Prograf 1 mg 1 capsule at bedtime and Prograf 2 capsule twice daily. ALLERGIES: PENICILLIN, SULFA DRUGS AND DIPHENHYDRAMINE. REVIEW OF SYSTEMS: A 10-point review of systems was performed as mentioned above in history of present illness, otherwise unremarkable. PHYSICAL EXAMINATION: GENERAL: Well-developed, well-nourished female, not in acute distress. She weighs 73 kilos. VITAL SIGNS: Blood pressure 120/63, respiratory rate 18, pulse is 91 and regular, temperature 97.6, oxygen saturation 98% on room air. HEENT: Normocephalic and atraumatic, otherwise unremarkable. NECK: Supple. Negative for carotid bruit, lymphadenopathy or thyromegaly. LUNGS: Clear to A and P. CARDIOVASCULAR: Regular rhythm, normal S1 and S2. There is no S3, S4 or murmur. ABDOMEN: Soft. Bowel sounds positive. EXTREMITIES: Negative for cyanosis, clubbing or edema. NEUROLOGICAL: MENTAL STATUS: The patient is alert and oriented x3. Speech is fluent. There is no language dysfunction. Memory, judgment, and abstracting thinking are normal. The patient denies hallucination or delusion. CRANIAL NERVES: Visual ward are full. The pupils are reactive to light and accommodation. The extraocular movements are intact. There is no nystagmus. There is no facial motor or sensory deficits. Hearing is intact bilaterally. The palate is elevated symmetrically. Sternocleidomastoid muscles are powerful bilaterally. The patient shrugs her shoulders symmetrically and protrudes her tongue in the midline without fasciculation or atrophy. MOTOR EXAMINATION: No focal muscle bulk was seen. The tone is normal. The strength is 5/5 throughout. SENSORY EXAMINATION: Revealed normal pinprick, light touch, vibratory and position senses. Deep tendon reflexes were symmetric and active without pathology responses. Gait and coordination were normal. DIAGNOSTIC DATA: A CT head and C-spine CT scan as described above in history of present illness. Carotid Doppler study revealed no evidence of acute arterial stenosis. LABORATORY DATA: CBC revealed white blood cells of 12.7000, hemoglobin 11.9, hematocrit 36.8, platelet count 343,000. Chemistry revealed sodium of 139, potassium 4.4, chloride 102, CO2 of 29, BUN 18, creatinine 1.3, glucose 96, and calcium 8.7. Urinalysis revealed trace hematuria with urinary leukocyte esterase and white blood cells between 20-40. Urine drug screen is negative. Coagulation are normal. IMPRESSION: 1. Questionable transient ischemic attack, possible induced by underlying extreme anxiety and depression. 2. Multiple medical problems include history of hypertension, kidney disease, status post renal transplant. RECOMMENDATIONS: 1. Continue with current management including aspirin. 2. Treat the underlying anxiety and depression. 3. In case of persistent numbness and paresthesia of the left upper extremity, the patient should follow up in my office and perform an EMG/NCS of the left upper extremities to rule out entrapment neuropathy versus cervical radiculopathy. M Jerrell GARCIA MD DR: CINDY/estela JOB#: [id number] / [id number]
--- NOTE | 2019-10-22 12:06 | PDOC2 ---
CONSULT Date of Admission DATE: 10/22/19 TIME: 12:06 Reason for Consult: Recurrent TIA Referring Physician: Dr. Ross Chief Complaint Tingling and numbness Source: Chart review, Patient Problem List Problems Medical Problems: (1) TIA (transient ischemic attack) Status: Acute History of Present Illness 53-year-old female presented with tingling of upper lip and left arm for past 2 to 3 days. She was admitted for possible TIA and is being followed by neurology team. Since she has had recurrent TIAs, we have been consulted to rule out cardiac etiology. Patient denied any chest pain, orthopnea/PND, palpitations or syncope. Past Medical History Polycystic kidney disease Hypertension Past Surgical History Kidney transplantation Tubal ligation Hyperlipidemia Hypertension Family History Hypertension and cancer Social History Patient quit smoking in 2006, denied any alcohol or drug abuse Current Medications Current Medications Lactated Ringer's 1,000 ml @ 1,000 mls/hr Q1H IV Last administered on 10/21/19at 19:03; Start 10/21/19 at 18:00; Stop 10/21/19 at 18:59; Status DC Aspirin (Reynaldo Aspirin) 325 mg 1X ONCE PO Last administered on 10/21/19at 23:11; Start 10/21/19 at 23:15; Stop 10/21/19 at 23:16; Status DC Ondansetron HCl (Zofran) 4 mg PRN Q4HRS PRN IVP NAUSEA/VOMITING; Start 10/21/19 at 23:00; Stop 10/22/19 at 22:59 Acetaminophen (Tylenol) 650 mg PRN Q4HRS PRN PO FEVER > 100.3'F; Start 10/21/19 at 23:00; Stop 10/22/19 at 22:59 Albuterol/ Ipratropium (Duoneb) 3 ml RTQID NEB ; Start 10/22/19 at 08:00; Stop 10/23/19 at 07:59 Aspirin (Aspirin Chewable) 81 mg DAILYWBKFT PO Last administered on 10/22/19at 08:15; Start 10/22/19 at 08:00 Magnesium Hydroxide (Milk Of Magnesia) 2,400 mg 1X ONCE PO Last administered on 10/21/19at 23:11; Start 10/21/19 at 23:45; Stop 10/21/19 at 23:46; Status DC Magnesium Hydroxide (Milk Of Magnesia) 2,400 mg STK-MED ONCE .ROUTE ; Start 10/21/19 at 23:09; Stop 10/21/19 at 23:09; Status DC Active Scripts Active Reported Aspirin 81 Mg Tab.chew 81 Mg PO DAILY Prograf (Tacrolimus) 1 Mg Capsule 1 Mg PO QHS Myfortic (Mycophenolate Sodium) 180 Mg Tablet.dr 2 Tab PO BID Zoloft (Sertraline Hcl) 100 Mg Tablet 1 Tab PO DAILY Protonix (Pantoprazole Sodium) 40 Mg Tablet.dr 1 Tab PO DAILY Prograf (Tacrolimus) 1 Mg Capsule 2 Cap PO DAILY Allergies: Coded Allergies: Penicillins (Unverified Allergy, Intermediate, 08/14/16) Sulfa (Sulfonamide Antibiotics) (Verified Allergy, Intermediate, 08/14/16) diphenhydramine (Verified Allergy, Mild, "I feel like Im climbing the jean with the shot. ", 10/15/19) PSYCHOLOGICAL ROS: No: Hallucinations Eyes: No: Loss of vision HEENT: No: Epistaxis Respiratory: No: Hemoptysis, Shortness of breath Cardiovascular: No: Chest Pain, Palpitations Gastrointestinal: No: Vomiting, Diarrhea Neurological: No: Seizures Skin: No: Rash General: Alert, No acute distress HEENT: Atraumatic, PERRLA Lungs: Clear to auscultation Heart: Regular rate Abdomen: Normal bowel sounds, Soft, No masses Extremities: No edema Psych/Mental Status: Mood NL VITALS Vital Signs Date Time Temp Pulse Resp B/P (MAP) Pulse Ox O2 Delivery O2 Flow Rate FiO2 10/22/19 10:49 98.2 86 148/88 (108) 94 Room Air 10/22/19 07:00 18 Labs Laboratory Tests Test 10/21/19 18:36 10/21/19 18:57 10/22/19 06:55 Urine Collection Type Unknown Urine Color Yellow Urine Clarity Cloudy Urine pH 7.0 Urine Specific [place] 1.025 Urine Protein 100 mg/dl (NEG-TRACE) Urine Glucose (UA) Neg mg/dL (NEG) Urine Ketones (Stick) Neg mg/dL (NEG) Urine Blood Trace (NEG) Urine Nitrite Neg (NEG) Urine Bilirubin Neg (NEG) Urine Urobilinogen Dipstick 0.2 mg/dL (0.2 mg/dL) Urine Leukocyte Esterase Small (NEG) Urine RBC 3-5 /HPF (0-2) Urine WBC 20-40 /HPF (0-4) Urine Squamous Epithelial Cells Mod /LPF Urine Amorphous Sediment Present /HPF Urine Bacteria Mod /HPF (0-FEW) Urine Opiates Screen Neg (NEG) Urine Methadone Screen Neg (NEG) Urine Barbiturates Neg (NEG) Urine Phencyclidine Screen Neg (NEG) Urine Amphetamine/Methamphetamine Neg (NEG) Urine Benzodiazepines Screen Neg (NEG) Urine Cocaine Screen Neg (NEG) Urine Cannabinoids Screen Neg (NEG) Urine Ethyl Alcohol Neg (NEG) White Blood Count 13.3 x10^3/uL (4.0-11.0) 12.7 x10^3/uL (4.0-11.0) Red Blood Count 4.98 x10^6/uL (3.50-5.40) 4.86 x10^6/uL (3.50-5.40) Hemoglobin 12.1 g/dL (12.0-15.5) 11.9 g/dL (12.0-15.5) Hematocrit 37.5 % (36.0-47.0) 36.8 % (36.0-47.0) Mean Corpuscular Volume 75 fL (79-100) 76 fL (79-100) Mean Corpuscular Hemoglobin 24 pg (25-35) 25 pg (25-35) Mean Corpuscular Hemoglobin Concent 32 g/dL (31-37) 33 g/dL (31-37) Red Cell Distribution Width 14.6 % (11.5-14.5) 14.2 % (11.5-14.5) Platelet Count 370 x10^3/uL (140-400) 343 x10^3/uL (140-400) Neutrophils (%) (Auto) 71 % (31-73) 68 % (31-73) Lymphocytes (%) (Auto) 22 % (24-48) 26 % (24-48) Monocytes (%) (Auto) 4 % (0-9) 4 % (0-9) Eosinophils (%) (Auto) 2 % (0-3) 2 % (0-3) Basophils (%) (Auto) 1 % (0-3) 0 % (0-3) Neutrophils # (Auto) 9.4 x10^3uL (1.8-7.7) 8.6 x10^3uL (1.8-7.7) Lymphocytes # (Auto) 3.0 x10^3/uL (1.0-4.8) 3.3 x10^3/uL (1.0-4.8) Monocytes # (Auto) 0.5 x10^3/uL (0.0-1.1) 0.5 x10^3/uL (0.0-1.1) Eosinophils # (Auto) 0.2 x10^3/uL (0.0-0.7) 0.2 x10^3/uL (0.0-0.7) Basophils # (Auto) 0.2 x10^3/uL (0.0-0.2) 0.0 x10^3/uL (0.0-0.2) Prothrombin Time 10.5 SEC (9.4-11.4) Prothromb Time International Ratio 1.0 (0.9-1.1) Activated Partial Thromboplast Time 25 SEC (23-33) D-Dimer (Josephine) 0.21 mg/L (0.00-0.50) Sodium Level 136 mmol/L (136-145) 138 mmol/L (136-145) Potassium Level 4.6 mmol/L (3.5-5.1) 4.4 mmol/L (3.5-5.1) Chloride Level 101 mmol/L (98-107) 102 mmol/L (98-107) Carbon Dioxide Level 26 mmol/L (21-32) 29 mmol/L (21-32) Anion Gap 9 (6-14) 7 (6-14) Blood Urea Nitrogen 21 mg/dL (7-20) 18 mg/dL (7-20) Creatinine 1.3 mg/dL (0.6-1.0) 1.3 mg/dL (0.6-1.0) Estimated GFR (Cockcroft-Gault) 43.0 43.0 Glucose Level 97 mg/dL (70-99) 96 mg/dL (70-99) Calcium Level 8.9 mg/dL (8.5-10.1) 8.7 mg/dL (8.5-10.1) Magnesium Level 1.8 mg/dL (1.8-2.4) Total Bilirubin 0.4 mg/dL (0.2-1.0) Direct Bilirubin 0.1 mg/dL (0.0-0.2) Aspartate Amino Transf (AST/SGOT) 23 U/L (15-37) Alanine Aminotransferase (ALT/SGPT) 22 U/L (14-59) Alkaline Phosphatase 123 U/L (46-116) Creatine Kinase 75 U/L (26-192) Troponin I Quantitative < 0.017 ng/mL (0-0.055) C-Reactive Protein 14.0 mg/L (0-3.3) AK-Mtq-F-Type Natriuretic Peptide 85 pg/mL (0-124) Total Protein 7.5 g/dL (6.4-8.2) Albumin 3.7 g/dL (3.4-5.0) Lipase 213 U/L (73-393) Thyroid Stimulating Hormone (TSH) 2.075 uIU/mL (0.358-3.740) Assessment/Plan 1. Recurrent TIA with improvement in symptoms since admission. Carotid arterial duplex done did not show any significant carotid artery stenosis. Cardiac enzymes negative. Telemetry did not show any significant arrhythmias. Plan for 2D echo and event monitor as an outpatient. 2. Hypertension: Controlled 3. Hyperlipidemia: Continue statin therapy 4. s/p kidney transplantation: Continue immunosuppressive therapy Thank you for consultation. HAILEY TRINH MD Oct 22, 2019 12:06
[2019-10-22] MEDS ORDERED: AMIT10TA PO (12:59)
[2019-10-22] MEDS ORDERED: PROP60CA36 PO (13:14)
[2019-10-22] MEDS ORDERED: TRAM50TA PO (13:14)
[2019-10-22] MEDS ORDERED: SUCR1TAB35 PO (13:14)
[2019-10-22] MEDS ORDERED: CALC500T31 PO (13:14)
[2019-10-22] MEDS ORDERED: CRESTOR20 MG PO (13:14)
[2019-10-22] MEDS ORDERED: POTA15TA9 PO (13:16)
[2019-10-22 14:56] VITALS: BP 128/82
[2019-10-22] MEDS ORDERED: traMADol 50 MG TABLET PO PRN (15:15)
--- NOTE | 2019-10-22 15:55 | HP ---
ADMIT DATE: 10/21/2019 HISTORY OF PRESENT ILLNESS: The patient is a 53-year-old female patient who presented to the Emergency Room of [facility] with complaint of tingling of her upper lip and left arm and hand for 3 days. She apparently had this tingling in her left upper extremity for years, but when started having tingling in her lips, she became worried and came to the Emergency Room for further evaluation. She stated that she has had 11 TIAs in the past, had this constant for the last 3 days and therefore she came to be evaluated. She denied any changes in her medication. She follows at [place] for care. The patient does not smoke, does take daily aspirin. She has right hand dominance. No history of trauma. She is actually on immunosuppressive therapy for a kidney transplant. She has a history of polycystic kidney disease, end-stage renal disease, kidney transplant. She was evaluated in the Emergency Room and basically her lab works showed mild leukocytosis, kidney function stable and her prothrombin time, INR, aPTT and D-dimer all within normal range. She had had a CT scan of head and cervical spine, showed no acute intracranial abnormalities seen and the CT scan of the cervical spine showed degenerative changes seen involving cervical spine as discussed above. No acute osseous abnormalities seen. The patient was admitted to consult the neurologist as well as the milk wagon driver. We have arranged for her to have bilateral carotid Doppler ultrasound. PAST MEDICAL HISTORY: She has polycystic kidney disease, hypertension, end-stage renal disease. PAST SURGICAL HISTORY: Significant for kidney transplant and tubal ligation. ALLERGIES: SHE IS ALLERGIC TO PENICILLIN, SULFA DRUGS, AND DIPHENHYDRAMINE. FAMILY HISTORY: She has 1 brother, still alive and younger, has no problems with his kidneys. Her father at the age of 62 because of lung and brain cancer. Mother at the age of 52 because of cancer of the lung. SOCIAL HISTORY: She is , has 1 son from her previous marriage. She quit smoking in 2006. She does not drink alcohol or use any recreational drugs. 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 MEDICATIONS: She is currently on following medications: She is on Crestor 20 mg daily, propranolol 60 mg daily, aspirin 81 mg once a day, tramadol 50-100 mg every 6 hours, amitriptyline 10 mg at bedtime, Zoloft 100 mg daily, potassium citrate 20 mEq twice a day, calcium carbonate 500 mg twice a day, sucralfate 1 gram 4 times a day, Protonix 40 mg once a day. Mycophenolate sodium 180 mg, she takes 2 tablets twice a day. Tacrolimus 2 mg daily and tacrolimus 1 mg at bedtime. REVIEW OF SYSTEMS: As per history of present illness. PHYSICAL EXAMINATION: GENERAL: On arrival to the Emergency Room, the patient looked well and was clearly in no apparent respiratory distress. No pallor, jaundice, cyanosis or thyromegaly. No jugular venous distention. No limb edema. VITAL SIGNS: Her heart rate was 64, blood pressure was 111/74, temperature was 98.2, respiratory rate was 18 and oxygen saturation was 96%. HEAD, EYES, EARS, NOSE AND THROAT: Normocephalic, atraumatic. NECK: Supple. HEART: Showed normal first and second heart sounds. No gallop or murmur. CHEST: Clear to auscultation. No crepitation or rhonchi. ABDOMEN: Distended, soft, nontender. NEUROLOGIC: She was awake, alert, responding appropriately. There was no evidence of any neurological deficit. LABORATORY DATA: Her lab work on admission showed a white cell count of 13,300, hemoglobin 12, hematocrit 37.5, MCV 75 and platelet count 370,000. Her chemistry showed a serum sodium 136, potassium 4.6, chloride 101, bicarbonate 26, anion gap of 9, BUN 21, creatinine 1.3, estimated GFR was 43 mL per minute. Her glucose 97, calcium was 8.9, magnesium was 1.8. Total bilirubin, AST, ALT, alkaline phosphatase were normal. CK was 75. Troponin was less than 0.017. C-reactive protein was 14 mg. Beta natriuretic peptide was 85. Total protein 7.5, albumin 3.7. Lipase was 113 and TSH was 2.075. Urinalysis showed that the urine was yellow, cloudy with a pH of 7, specific gravity of 1.025. There was large amount of protein. The urine was negative for glucose, ketones, trace amount of blood, negative for nitrite. There is small amount of leukocyte esterase, 3-5 rbc's, 20-40 wbc's, moderate amount of urine bacteria. She has had CT scan of the head and cervical spine. CT scan of the head showed the ventricles and sulci are within normal limits in size and configuration. No acute parenchymal abnormality seen. No extraaxial fluid collection is noted. No skull fracture is seen. CT scan of the cervical spine showed that the patient has degenerative changes that is involving cervical spine as discussed above. No acute osseous abnormalities seen. Her chest x-ray showed no acute pulmonary finding and bilateral carotid Doppler ultrasound showed that there is no evidence of hemodynamically significant stenosis of internal carotid arteries. There is antegrade flow in the bilateral vertebral arteries, no significant stenosis demonstrated on color grayscale images. ASSESSMENT AND PLAN: The patient was seen by Dr. Pryor and also Dr. Hendrix. Dr. Pryor recommended outpatient EMG and nerve conduction studies of the left upper extremity to rule out entrapment neuropathy versus central radiculopathy and the milk wagon driver recommended event monitor as an outpatient as well as an echocardiogram. Dictation Ends here DAVINA LOMAS MD DR: SHIRA/estela JOB#: [id number] / [id number]
[2019-10-22] MEDS ORDERED: SUCRALFATE 1 GM TABLET. PO SCH (16:30)
--- NOTE | 2019-10-22 19:40 | DS ---
DATE OF DISCHARGE: 10/22/2019 HOSPITAL COURSE: The patient came with complaint of tingling and numbness that has been there for years according to her; however, she has persistent numbness in left upper extremity for the last 3 days and she started having also numbness of her upper lip that concerned her and therefore, she came to the Emergency Room for further evaluation and treatment. She was extensively investigated. Basically, all her imaging studies and lab works were unremarkable. Her CT scan was unremarkable. Carotid Doppler ultrasound was unremarkable and she was seen by Dr. Pryor who recommended outpatient EMG and nerve conduction studies. The crop insurance claims adjuster recommended an event monitor or perhaps an echocardiogram. She did have a stress test apparently recently, the beginning of this year by the [facility]. PHYSICAL EXAMINATION: GENERAL: When I saw her this afternoon, she looked well and was clearly in no apparent respiratory distress. No pallor, jaundice, cyanosis or thyromegaly. No jugular venous distention. No limb edema. VITAL SIGNS: Her heart rate was 70, blood pressure was 128/82, temperature was 97.6, respiratory rate 20, and oxygen saturation was 95% on room air. HEAD, EYES, EARS, NOSE AND THROAT: Showed normocephalic, atraumatic. NECK: Supple. HEART: Showed normal first and second heart sounds. No gallop or murmur. CHEST: Shows central trachea, equal bilateral expansion, air entry. No crepitation or rhonchi. ABDOMEN: Distended, soft, nontender. NEUROLOGICALLY: She is awake, alert, responding appropriately. All cranial nerves intact. EXTREMITIES: She moves extremities without difficulty. She ambulates without assistance or assistive devices. Does have tingling and numbness more pronounced in her left index finger, although all her fingers are numb, indicating this probably has ____ rather than carpal tunnel ulnar nerve entrapment. LABORATORY DATA: Her lab works were unremarkable. Her chemistry showed a serum sodium 138, potassium 4.4, chloride 102, bicarbonate 29, anion gap of 7, BUN 18, creatinine 1.3, estimated GFR was 43 mL per minute. Her glucose was 86, calcium was 8.7. Blood count showed a white cell count 12,700, hemoglobin was 12, hematocrit 36, MCV 76 and platelet count 343,000. DISCHARGE MEDICATIONS: The patient was discharged home to continue on all her medications that included her Crestor 20 mg once a day, propranolol 60 mg once a day, aspirin 81 mg once a day, tramadol 50-100 mg every 6 hours, amitriptyline 10 mg at bedtime, sertraline 100 mg once a day, potassium citrate 20 mEq twice a day, calcium carbonate 500 mg twice a day, sucralfate 1 gram 4 times a day, Protonix 40 mg once a day, mycophenolate 360 mg twice a day, Prograf 2 mg daily and 1 mg at bedtime. FINAL DISCHARGE DIAGNOSES: Questionable transient ischemic attack, possible induced by underlying extreme anxiety and depression. Other medical problems include hypertension, chronic kidney disease secondary to polycystic kidney disease, status post kidney transplant. Dr. Pryor recommended the patient arrange for an appointment to be seen in his office to perform EMG and nerve conduction studies, her left upper extremity to rule out entrapment neuropathy versus cervical radiculopathy ____ recommended event monitor as well as outpatient echocardiography. DAVINA LOMAS MD DR: SHIRA/estela JOB#: [id number] / [id number]
[2019-10-22] MEDS ORDERED: ATORVASTATIN CALCIUM 20 MG TABLET PO SCH (21:00)
[2019-10-22] MEDS ORDERED: MYCOPHENOLATE SODIUM 180 MG TABLET.DR PO SCH (21:00)
[2019-10-22] MEDS ORDERED: AMITRIPTYLINE HCL 10 MG TABLET PO SCH (21:00)
[2019-10-22] MEDS ORDERED: CALCIUM CARBONATE 500 MG TABLET PO SCH (21:00)
[2019-10-22] MEDS ORDERED: TACROLIMUS 1 MG CAPSULE PO SCH (21:00)
[2019-10-23] MEDS ORDERED: PROPRANOLOL ER 60 MG CAP.SA.24H. PO SCH (09:00)
[2019-10-23] MEDS ORDERED: PANTOPRAZOLE 40 MG TABLET. PO SCH (09:00)
[2019-10-23] MEDS ORDERED: ASPIRIN CHEWABLE 81 MG TABLET. PO SCH (09:00)
[2019-10-23] MEDS ORDERED: SERTRALINE 100 MG TABLET. PO SCH (09:00)
[2019-10-23] MEDS ORDERED: TACROLIMUS 1 MG CAPSULE PO SCH (09:00)
== END 2019-10-22 15:30 | disposition home or self-care (01) | DRG 69 ==
LOC: ER 17:33 → ICU 20:30 → 1 SOUTH 10-22 10:46
PROVIDERS: ADMIT Internal Medicine; ATTEND Internal Medicine
DX: G45.9 Transient cerebral ischemic attack, unspecified (principal); I12.0 Hypertensive chronic kidney disease with stage 5 chronic kidney disease or end stage renal disease; Q61.3 Polycystic kidney, unspecified; Z94.0 Kidney transplant status; D50.9 Iron deficiency anemia, unspecified; D72.829 Elevated white blood cell count, unspecified; E11.22 Type 2 diabetes mellitus with diabetic chronic kidney disease; E78.00 Pure hypercholesterolemia, unspecified; K21.9 Gastro-esophageal reflux disease without esophagitis; E78.5 Hyperlipidemia, unspecified; M50.30 Other cervical disc degeneration, unspecified cervical region; Z79.82 Long term (current) use of aspirin; Z79.899 Other long term (current) drug therapy; Z80.1 Family history of malignant neoplasm of trachea, bronchus and lung; Z80.8 Family history of malignant neoplasm of other organs or systems; Z82.49 Family history of ischemic heart disease and other diseases of the circulatory system; Z85.828 Personal history of other malignant neoplasm of skin; Z86.73 Personal history of transient ischemic attack (TIA), and cerebral infarction without residual deficits; Z87.440 Personal history of urinary (tract) infections; Z87.891 Personal history of nicotine dependence; Z98.51 Tubal ligation status; F32.9 Major depressive disorder, single episode, unspecified; F41.9 Anxiety disorder, unspecified; G43.909 Migraine, unspecified, not intractable, without status migrainosus; M54.12 Radiculopathy, cervical region
CPT/HCPCS: 36415; 70450; 71046; 72125; 80048; 80076; 80307; 81001; 82550; 83690; 83735; 83880; 84443; 84484; 85025; 85379; 85610; 85730; 86140; 87086; 93005; 93880; 96361; 96374; J7120; 99285-25

== ENCOUNTER 2020-01-25 17:55 | Emergency (ER) | payer OTHER ==
[~2020-01-25] VITALS: Ht 157.5 cm; Wt 79.9 kg
[~2020-01-25 17:55] MED LIST changes: +AMIT10TA PO; +ASPI-630 PO; +CALC500T31 PO; +CRESTOR20 MG PO; +POTA15TA9 PO; +PROP60CA36 PO; +SUCR1TAB35 PO; +TRAM50TA PO
--- NOTE | 2020-01-25 18:26 | RAD ---
PQRS Compliance Statement: One or more of the following individualized dose reduction techniques were utilized for this examination: 1. Automated exposure control 2. Adjustment of the mA and/or kV according to patient size 3. Use of iterative reconstruction technique CT HEAD WITHOUT CONTRAST History: Reason: slurred speech and left sided weakness / Spl. Instructions: / History: Comparison: CT head without contrast October 21, 2019. Procedure: Axial images are obtained of the head from the skull base through the vertex without IV contrast. Findings: The ventricles and sulci are normal for the patient's age. There may be minimal periventricular white matter hypoattenuation. No mass-effect, midline shift, hemorrhage, extra-axial fluid collection, or obvious acute infarction is identified. Basilar cisterns are patent. Bone windows demonstrate no acute calvarial abnormality. The visualized paranasal sinuses are clear. Mastoid air cells are well aerated. IMPRESSION: No acute intracranial abnormality. FOR INTERNAL CODING PURPOSES Critical result: Findings discussed with DEANDRE MORALES at 01/25/2020 6:22 PM. RESULT CODE: (C) Electronically signed by: Edin Barron MD (01/25/2020 6:23 PM) [facility]
[2020-01-25] MEDS ORDERED: ASPIRIN 325 MG TABLET PO ONE (18:30)
--- NOTE | 2020-01-25 18:37 | PHYS DOC ---
Past History Past Medical History: High Cholesterol, Hypertension, Renal Disease, Renal Failure, TIA, URI, UTI, Other Additional Past Medical Histor: kidney transplant 2007 Past Surgical History: Tubal ligation, Other Additional Past Surgical Histo: kidney transplant 2007 Smoking: Non-smoker Alcohol Use: None Drug Use: None General Adult EDM: Chief Complaint: ALTERED MENTAL STATUS HPI: HPI: Patient is a 54 year old F who presents with dizziness and confusion. states that she had slurred speech and appeared that she could not stand. She was last seen normal at 5:30pm per . Pt states that she got dizzy and had some blurred vision, and felt like she "got lost". She has a hard time remembering the events and is slightly slow to respond. She complains of some numbness in her left hand which she has had for awhile due to ulnar nerve compression. She also complains of some left leg weakness that she states she has had for "years" She denies any head trauma. She also denies LANDEROS, fever, chills. Pt denies difficulty swallowing or finding words. Review of Systems: Review of Systems: Constitutional: Denies fever or chills Eyes: Denies redness or eye pain HENT: Denies nasal congestion or sore throat Respiratory: Denies cough or shortness of breath Cardiovascular: Denies chest pain or palpitations GI: Denies abdominal pain, nausea, or vomiting : Denies dysuria or hematuria Musculoskeletal: Denies back pain or joint pain Integument: Denies rash or skin lesions Neurologic: Denies headache; reports focal weakness. Complete systems were reviewed and found to be within normal limits, except as documented in this note. Current Medications: Current Meds: Current Medications Medications (Trade) Dose Ordered Sig/[facility] Start Time Stop Time Status Last Admin Dose Admin Aspirin (Reynaldo Aspirin) 325 mg 1X ONCE 01/25/20 18:30 01/25/20 18:31 UNV Allergies: Allergies: Allergies Coded Allergies Type Severity Reaction Last Updated Verified Penicillins Allergy Intermediate 08/14/16 No Sulfa (Sulfonamide Antibiotics) Allergy Intermediate 08/14/16 Yes diphenhydramine Allergy Mild "I feel like Im climbing the jean with the shot. " 10/15/19 Yes Physical Exam: PE: Constitutional: Well developed, well nourished, no acute distress. HENT: Normocephalic, atraumatic Eyes: EOMI, conjunctiva normal, no discharge Neck: Normal range of motion, no tenderness, supple Lungs & Thorax: No respiratory distress, equal chest rise and fall Abdomen: Soft, no tenderness Skin: Warm, dry, no erythema. Back: No tenderness, no CVA tenderness Extremities: No tenderness, no edema Neurologic: Alert and oriented X 3, slight loss of sensation in L hand and forearm (history of compressed ulnar nerve), sensation intact LE b/l. CN II-IX intact. Muscle strength right UE +5/5, left UE +4/5, right LE +5/5, left LE +4/5. Cerebellar function intact. No dysphagia dysarthria.. Psychologic: Affect normal, judgment normal EKG: EKG: @18:03 Normal sinus rhythm at [address] elevation or T wave inversions. QRS 70 ms, QT 354 ms, QTc 454 ms. Radiology/Procedures: Radiology/Procedures: PROCEDURE: CT CODE STROKE HEAD WO PQRS Compliance Statement: One or more of the following individualized dose reduction techniques were utilized for this examination: 1. Automated exposure control 2. Adjustment of the mA and/or kV according to patient size 3. Use of iterative reconstruction technique CT HEAD WITHOUT CONTRAST History: Reason: slurred speech and left sided weakness / Spl. Instructions: / History: Comparison: CT head without contrast October 21, 2019. Procedure: Axial images are obtained of the head from the skull base through the vertex without IV contrast. Findings: The ventricles and sulci are normal for the patient's age. There may be minimal periventricular white matter hypoattenuation. No mass-effect, midline shift, hemorrhage, extra-axial fluid collection, or obvious acute infarction is identified. Basilar cisterns are patent. Bone windows demonstrate no acute calvarial abnormality. The visualized paranasal sinuses are clear. Mastoid air cells are well aerated. IMPRESSION: No acute intracranial abnormality. FOR INTERNAL CODING PURPOSES Critical result: Findings discussed with DEANDRE MORALES at 01/25/2020 6:22 PM. RESULT CODE: (C) Electronically signed by: Edin Barron MD (01/25/2020 6:23 PM) [facility] Course & Med Decision Making: Course & Med Decision Making Pertinent Labs and Imaging studies reviewed. (See chart for details) [] Dragon Disclaimer: Dragon Disclaimer: This electronic medical record was generated, in whole or in part, using a voice recognition dictation system. Departure Departure: Impression: Primary Impression: Altered mental status Qualified Codes: R41.82 - Altered mental status, unspecified Additional Impression: UTI (urinary tract infection) Qualified Codes: N30.00 - Acute cystitis without hematuria Disposition: HOME/RESIDENCE PRIOR TO ADM Condition: IMPROVED Referrals: LEVI BAKER DO (PCP) Patient Instructions: Altered Mental Status, Transient Ischemic Attack, [id number], Urinary Tract Infection, [id number] Additional Instructions: Please follow closely with your doctor and neurologist for further evaluation. Please return for any worsening or return of symptoms. Scripts Cephalexin (KEFLEX) 500 Mg Capsule 1 CAP PO TID for UTI for 7 Days, #21 CAP 0 Refills Prov: DEANDRE MORALES DO 01/25/20 Justification of Admission: Justification of Admission: Justification of Admission Dx: N/A NIHSS - ED NIH Stroke Scale: NIH Stroke Scale Response (Comments) Value Level of Consciousness: 0 Alert/Responsive 0 LOC Questions: 0 Answers both correctly 0 LOC Commands: 0 Performs both tasks 0 Best Gaze: 0 Normal 0 Visual: 0 No visual loss 0 Facial Palsy: 0 Normal, symmetrical 0 Motor - Left Arm 0 No drift 0 Motor - Right Arm 0 No drift 0 Motor - Left Leg 1 Drift but can hold (Pt reports chronic focal weakness for "years") 1 Motor: Right Leg 0 No drift 0 Limb Ataxia: 0 Absent 0 Sensory: 1 Mid to moderate loss (Left hand and fo rearm which pt states is baseline due to ulnar N compression) 1 Best Language: 0 Normal 0 Dysathria: 0 Normal 0 Extinction and Inattention: 0 Normal 0 Total 2 DEANDRE MORALES DO Jan 25, 2020 18:37
[2020-01-25 18:46] LABS: BASO % 0 % (0-3); EOS # 0.3 x10^3/uL (0.0-0.7); EOS % 3 % (0-3); HEMOGLOBIN 12.4 g/dL (12.0-15.5); LYMPH % 17 % (24-48); MEAN CORPUSCULAR HEMOGLOBIN 25 pg (25-35); MEAN CORPUSCULAR HGB CONC 33 g/dL (31-37); MEAN CORPUSCULAR VOLUME 76 fL (79-100); MONO # 0.4 x10^3/uL (0.0-1.1); MONO % 4 % (0-9); NEUT # 8.9 x10^3uL (1.8-7.7); NEUT % 77 % (31-73); PLATELET COUNT 395 x10^3/uL (140-400); RED BLOOD COUNT 4.98 x10^6/uL (3.50-5.40); WHITE BLOOD COUNT 11.6 x10^3/uL (4.0-11.0)
[2020-01-25 18:51] LABS: CALCIUM 9.1 mg/dL (8.5-10.1); CREATININE 1.2 mg/dL (0.6-1.0); POTASSIUM 3.6 mmol/L (3.5-5.1)
[2020-01-25 19:08] LABS: ALBUMIN 3.8 g/dL (3.4-5.0); MAGNESIUM 1.8 mg/dL (1.8-2.4); TOTAL BILIRUBIN 0.4 mg/dL (0.2-1.0); TOTAL PROTEIN 7.5 g/dL (6.4-8.2)
[2020-01-25 19:47] LABS: BARBITURATES NEG (NEG); BENZODIAZEPINES NEG (NEG); CANNABINOIDS NEG (NEG); COCAINE NEG (NEG); METHADONE NEG (NEG); OPIATES NEG (NEG); PHENCYCLIDINE NEG (NEG)
[2020-01-25 19:49] LABS: AMPHETAMINE/METHAMPHETAMINE NEG (NEG)
--- NOTE | 2020-01-25 19:50 | RAD ---
AP chest x-ray HISTORY: Weakness. COMPARISON: Chest x-ray October 21, 2019. FINDINGS: Heart size normal. Mediastinal silhouette is normal. No pneumothorax, pulmonary opacities or pleural effusions. Prominent epicardial fat pad of the cardiac apex is stable. Bones are unremarkable. IMPRESSION: No acute process. Electronically signed by: Anup Iglesias MD (01/25/2020 7:47 PM) [facility]
[2020-01-25 19:53] LABS: BACTERIA,URINE MOD /HPF (0-FEW); BILIRUBIN,URINE NEG (NEG); CLARITY,URINE HAZY; COLOR,URINE YELLOW; GLUCOSE,URINE NEG (NEG); NITRITE,URINE NEG (NEG); SQUAMOUS EPITHELIAL CELL,UR MOD /LPF; WBC,URINE >40 /HPF (0-4)
[2020-01-25] MEDS ORDERED: CEPH-264 PO (20:15)
[2020-01-25] MEDS ORDERED: IV NORMAL SALINE 50ML 50 ML ONE (20:17)
[2020-01-25] MEDS ORDERED: cefTRIAXone SODIUM 1 GM VIAL ONE (20:18)
[2020-01-25 20:30] VITALS: BP 149/89
== END 2020-01-25 20:35 | disposition home or self-care (01) ==
LOC: ER 17:55
DX: R41.82 Altered mental status, unspecified (principal); N39.0 Urinary tract infection, site not specified; R53.1 Weakness; E78.00 Pure hypercholesterolemia, unspecified; I10 Essential (primary) hypertension; Z87.440 Personal history of urinary (tract) infections; Z86.73 Personal history of transient ischemic attack (TIA), and cerebral infarction without residual deficits; Z94.0 Kidney transplant status; Z88.0 Allergy status to penicillin; Z88.2 Allergy status to sulfonamides; Z88.8 Allergy status to other drugs, medicaments and biological substances
CPT/HCPCS: 36415; 70450; 71045; 80053; 80307; 81001; 82140; 82553; 83605; 83735; 84484; 85025; 85610; 85730; 87086; 93005; 96374; 99285; G0480; J0696